=== PATIENT | male | born 1955 | race Caucasian/White ===

== ENCOUNTER → 2016-06-28 | Day surgery (SDC) | payer BC ==
[2016-06-15 08:08] VITALS: BMI 39.0
--- NOTE | 2016-06-15 08:46 | PAT Medication Instructions ---
Service Date June 15, 2016. Current Home Medication List Alprazolam (Xanax), 1 MG PO TID PRN for Anxiety Atorvastatin (Lipitor), 40 MG PO HS Bupropion (Wellbutrin Sr), 150 MG PO BID Fluoxetine (Prozac), 40 MG PO QAM Garcinia Cambogia-Chromium (Garcinia Cambogia), 1 TAB PO TIDM Lisinopril/Hctz (Prinzide 20-25MG), 0.5 TAB PO QAM Metformin Hcl (Glucophage *), 500 MG PO BID Medication Instructions For Your Scheduled Surgery - Hold the following medications 2 weeks prior to surgery: Garcinia Cambogia-Chromium (Garcinia Cambogia), 1 TAB PO TIDM - Hold the following medications 48 hours prior to surgery: Metformin Hcl (Glucophage *), 500 MG PO BID - Hold the following medications the morning of surgery: Lisinopril/Hctz (Prinzide 20-25MG), 0.5 TAB PO QAM - Take the following medications the morning of surgery with a sip of water: Fluoxetine (Prozac), 40 MG PO QAM Bupropion (Wellbutrin Sr), 150 MG PO BID Alprazolam (Xanax), 1 MG PO TID PRN for Anxiety - Take the following medications as scheduled the night before surgery: Bupropion (Wellbutrin Sr), 150 MG PO BID Atorvastatin (Lipitor), 40 MG PO HS Alprazolam (Xanax), 1 MG PO TID PRN for Anxiety If you have any questions please call us at [phone] or [phone] ( Suzan) or [phone]
[~2016-06-28] VITALS: Ht 182.9 cm; Wt 131.7 kg
[2016-06-28] VITALS (8 sets, daily range): BP systolic 104–142; BP diastolic 51–79; PULSE 63–95; TEMP 36.8–37; O2SAT 88–96; Ht 182.9 cm; Wt 131.7 kg
[~2016-06-28] MED LIST: ALPR-411 PO; ATOR-24 PO; ATROPINE SULFATE 0.1 MG/ML 5ML SYR IV PRN; BUPIVACAINE 0.5 % 5 MG/1 ML MPF 30ML VIAL ONE; BUPR-79 PO; CEFAZOLIN 3000 MG/65 ML D5W IV SCH; CISATRACURIUM BESYLATE IV SOLN 2 MG/ML 10 ML VIAL ONE; DEXAMETHASONE SOD INJ 4 MG/ML VIAL ONE; EpHEDrine SULFATE INJ 50 MG/ML AMP IV PRN; FENTANYL CITRATE INJ 50 MCG/1 ML 2 ML VIAL ONE; FLUO40CA8 PO; GARC1TAB PO; GLC500 PO; GLYCOPYRROLATE INJ 0.2 MG/ML VIAL ONE; LABETALOL HCL IV 5 MG/ML 20ML IV PRN; LACTATED RINGER'S 1000ML 1,000 ML IV SCH; LIDOCAINE HCL 1% 20 ML VIAL ONE; LIDOCAINE HCL 2% 2 ML VIAL (20MG/ML) ONE; LISI20TA55 PO; MIDAZOLAM HCL 1 MG/ML 2ML VIAL ONE; MoRPHine SULFATE 4 MG/ML 1 ML CARP\\VIAL IV PRN; NALOXONE HCL 0.4 MG/1 ML VIAL/CARP IV PRN; NEOSTIGMINE METHYLSULFATE 5 MG/5 ML SYR ONE; ONDANSETRON INJ 2 MG/ML 2 ML VIAL IV PRN; ONDANSETRON INJ 2 MG/ML 2 ML VIAL ONE; OXYCODONE/ACETAMINOPHEN 5-325 TAB PO PRN; PROMETHAZINE HCL INJ 12.5 MG in SODIUM CHLORIDE 0.9% 50ML 50 ML IV PRN; PROPOFOL IV EMULSION 10 MG/ML 20 ML VIAL IV ONE; SODIUM CHLORIDE 0.9% 1000ML 1,000 ML IV SCH; SUCCINYLCHOLINE CHLORIDE 20 MG/ML 10 ML VIAL IV ONE
--- NOTE | 2016-06-28 06:55 | History & Physical Bridge Note ---
H&P Re-Evaluation Bridge Note: I have examined the patient, reviewed the History & Physical and in the interval since the performance of the History & Physical I have noted the following changes of clinical significance: No changes noted
--- NOTE | 2016-06-28 08:24 | [facility] Post Operative Brief Note ---
Immediate Operative Summary Operative Date June 28, 2016. Pre-Operative Diagnosis epigastric hernia Post-Operative Diagnosis epigastric hernia Procedure(s) Performed Epigastric Hernia Repair Surgeon Dr. Andrew Maier Tile Setter Apprentice Surgeon(s) Kendy Le PA-C Estimated Blood Loss 5ml Findings See dictation Specimens A. Hernia Sac Drains None Anesthesia General Complication(s) None Disposition Recovery Room / PACU
--- NOTE | 2016-06-28 08:28 | Discharge Instructions ---
Discharge Instructions Date of Service June 28, 2016. Admission Reason for Admission: Epigastric Hernia Discharge Discharge Diagnosis / Problem: Same Discharge Goals Goal(s): Decrease discomfort Activity Recommendations Activity Limitations: per Instructions/Follow-up section Lifting Limitations: no more than 10 pounds (for 6 weeks) Shower/Bathe: tomorrow (Shower only) Driving or Machine Use: None for at least 2 weeks . Instructions / Follow-Up Instructions / Follow-Up ACTIVITY RECOMMENDATIONS: * Walk as much as possible. * No heavy lifting (>10 lbs.) for 6 weeks. SPECIAL CARE INSTRUCTIONS: * Ice to hernia repair site on and off until bedtime tonight. * May shower in 24 hours. Let water run over area and pat dry. * Leave steri strips on for one week. * Call the surgeon's office with any questions or concerns - (ex. temperature higher than 101 degrees F, excessive bleeding or pain). MEDICATIONS: Resume previous medications unless instructed otherwise by your surgeon. * Ibuprofen 600 mg every 6 hours with food * Percocet 1 every 4 hours, as needed for pain FOLLOW UP VISIT: If not already scheduled, please call the office to schedule a two week follow- up appointment. Office number Current Hospital Diet Patient's current hospital diet: Discharge Diet Recommended Diet: Regular Diet Procedures Procedures Performed: Epigastric Hernia Repair Pending Studies Studies pending at discharge: no Medical Emergencies . Who to Call and When: Medical Emergencies: If at any time you feel your situation is an emergency, please call 911 immediately. . Non-Emergent Contact Non-Emergency issues call your: Primary Care Provider, Surgeon Call Non-Emergent contact if: your pain is worsening, wound has increased redness, wound has increased pain . "Provider Documentation" section prepared by Andrew Maier. . VTE Core Measure Inpt VTE Proph given/why not?: Treatment not indicated
--- NOTE | 2016-06-28 08:48 | OPERATIVE REPORT ---
DATE OF OPERATION: 06/28/2016 PREOPERATIVE DIAGNOSIS: Epigastric hernia. POSTOPERATIVE DIAGNOSIS: Same. PROCEDURE: Repair of epigastric hernia. SURGEON: Dr. Maier. FORK LIFT TRUCK OPERATOR: Kendy Le PA-C. FINDINGS: The patient had a 5 cm fascial defect. The hernia sac was approximately 10 cm across at its greatest dimension. There was omentum and transverse colon within the hernia sac. There was no evidence of ischemia. There were no other hernia defects identified. TECHNIQUE: The patient was given a general anesthetic and the area was prepped and draped in the usual sterile fashion. A transverse incision was made, carried down through the subcutaneous tissue. The hernia sac was easily identified and away from the surrounding connective tissue using cautery, blunt and sharp dissection where appropriate. This dissection was carried around the entire circumference of the hernia sac until I could dissect it down to the fascial defect. The fascial defect was isolated away from the peritoneum. The hernia sac was opened and the omentum was dissected off the inner portion of the hernia sac. In order to reduce the hernia contents, I had to extend the size of the defect for about 5-7 mm laterally and then I was able to reduce the omentum and the colon back into the intraabdominal space. The hernia sac was then removed. The peritoneum was then able to be dissected away from the undersurface of the fascia, first superiorly to the left, then inferiorly on the left. The dissection on the right was a little more tricky in that the peritoneum was thinner on that side but I was able to establish a plane. The openings in the peritoneum were then closed with a running 2-0 Vicryl. The preperitoneal retrofascial space was established for at least 3-4 cm around the entire circumference of the fascial defect. A 12.5 cm round mesh was then placed preperitoneally and below the fascia. It was secured to the undersurface of the fascia with 0 PDS vertical mattress sutures. The fascial opening was then closed with a running #1 PDS. The subcutaneous tissue was closed with a running 3-0 Vicryl and the skin was closed with 4-0 Monocryl in a running subcuticular fashion. The skin was anesthetized with 0.5% Marcaine. The skin was cleansed, dried, benzoin placed, Steri-Strips applied. Estimated blood loss was 5 mL. Sponge, needle and instrument counts were correct prior to closure. The patient tolerated the surgical procedure without complication and was transferred to recovery. I attest to the content of the Intraoperative Record and any orders documented therein. Any exceptio ns are noted below.
[2016-06-28] MEDS: HYDROmorphone INJ 1 MG/ML SYR IV PRN ×2 (08:50→08:55)
--- NOTE | 2016-06-28 09:07 | Anesthesiology Progress Note ---
Anesthesia Post Op Note Date & Time June 28, 2016 at 09:06 Vital Signs Pain Intensity: 5.0 Vital Signs Past 12 Hours Date Time Temp Pulse Resp B/P Pulse Ox O2 Delivery O2 Flow Rate FiO2 06/28/16 08:55 91 16 118/69 99 Nasal Cannula 4 06/28/16 08:45 92 16 125/73 99 Mask 5 06/28/16 08:35 96 16 178/97 99 Mask 10 06/28/16 08:28 36.2 97 16 178/84 98 Mask 10 06/28/16 05:32 37 63 18 142/79 96 Room Air Notes Mental Status: alert / awake / arousable, participated in evaluation Pt Amnestic to Procedure: Yes Nausea / Vomiting: adequately controlled Pain: adequately controlled Airway Patency, RR, SpO2: stable & adequate BP & HR: stable & adequate Hydration State: stable & adequate Anesthetic Complications: no major complications apparent
== END | disposition home or self-care (01) ==
LOC: C.ACU 05:12
PROVIDERS: ATTEND Surgery
DX: K43.9 Ventral hernia without obstruction or gangrene (principal); E78.5 Hyperlipidemia, unspecified; E66.01 Morbid (severe) obesity due to excess calories; E11.9 Type 2 diabetes mellitus without complications; Z90.49 Acquired absence of other specified parts of digestive tract

== ENCOUNTER 2023-02-14 23:34 | Observation (INO) ==
--- OUTSIDE RECORDS SUMMARY | 2023-02-14 23:40 | External Medical Summary | Continuity of Care Document ---
Author Name Unknown Organization [address] Address [address] [place], [place] [id number] Care Team Providers Care Rivet Heater Name Role Phone Beatriz Osborne Primary Care P maria de jesus [phone] Encounter [facility]UDREYN[facility] [id number] Date(s): 01/11/23 - 01/11/[address], [facility] [address] [place] [address] [phone] Encounter Diagnosis Body mass index [BMI] 37.0-37.9, adult(Discharge Diagnosis) - 01/11/23 Diabetes(Discharge Diagnosis) - 01/11/23 Discharge Disposition: Home or Self Care Attending Physician: Sarah Booker DO, Mariana Annette Referring Physician: Sarah Booker DO, Mariana Annette Allergies, Adverse Reactions, Alerts No Known Allergies Assessment and Plan Extracted from: Title:Office Visit Note Author:Sarah Booker DO, Mariana Annette Date:01/11/23 1.Diabetes STATUS:Chronic stable. DATA:Labs reviewed. GOAL:Maintain stability. PLAN:Cont current meds, discussed diet changes and discretion during the holidays. f/u in 3 mo with labs. . Immunizations Given and Recorded Vaccine Date Status Refusal Reason influenza virus vaccine, inactivated 01/11/23 Give n influenza virus vaccine, inactivated 1 01/29/22 Gi gerardo influenza virus vaccine, inactivated 01/01/21 Give n pneumococcal 20-valent conjugate vaccine 2 01/29/22 Given SARS-CoV-2 (COVID-19) mRNA BNT-162b2 vax 3 11/26/20 Recorded SARS-CoV-2 (COVID-19) mRNA BNT-162b2 vax 4 05/05/20 Recorded SARS-CoV-2 (COVID-19) mRNA BNT-162b2 vax 5 04/14/20 Recorded pneumococcal 13-valent vaccine 6 11/22/19 Recorded tetanus/diphtheria/pertuss, acel (Tdap) 7 10/24/18 Recorded tetanus/diphtheria/pertuss, acel (Tdap) 8 11/16/07 Recorded pneumococcal 23-valent vaccine 9 08/20/05 Recorded 1Result Comment: Stacey Kincaid Ma 2Result Comment: Stacey Kincaid Ma 3Result Comment: 2020-12-18: Historical information-source unspecified 4Result Comment: 2020-10-03: Historical information-source unspecified 5Result Comment: 2020-10-03: Historical information-source unspecified 6Result Comment: 2020-10-03: Historical information-source unspecified 7Result Comment: 2020-10-03: Historical information-source unspecified 8Result Comment: 2020-10-03: Historical information-source unspecified 9Result Comment: 2020-10-03: Historical information-source unspecified Medications albuterol CFC free 90 mcg/inh MDI Start: 11/20/21 10:57:00 EDT, 2 puff, inhaled, qid, Disp# 18 g, Pharmacy: [facility]/pharmacy #[id number] Start Date: 11/20/21 Status: Ordered atorvastatin 40 mg oral tablet Start: 04/13/22 16:27:00 EST, 1 tab, PO, qhs, Disp# 90 tab, Refills: 3, Pharmacy: [facility] Start Date: 04/13/22 Status: Ordered finasteride 5 mg oral tablet Start: 08/09/22 11:24:00 EDT, 1 tab, PO, Daily, Disp# 90 tab, Refills: 2, please send medications to patients home address, Pharmacy: [facility] Start Date: 08/09/22 Status: Ordered Flomax 0.4 mg oral capsule Start: 08/09/22 11:24:00 EDT, 1 cap, PO, Daily, Disp# 90 cap, Refills: 2, Pharmacy: [facility] Start Date: 08/09/22 Status: Ordered hydroCHLOROthiazide-lisinopril 12.5 mg-10 mg oral tablet Start: 08/09/22 11:24:00 EDT, 1 tab, PO, Daily, Disp# 90 tab, Refills: 2, Pharmacy: [facility] Start Date: 08/09/22 Status: Ordered Jardiance 25 mg oral tablet Start: 10/13/22 13:20:00 EDT, 1 tab, PO, qAM, Disp# 90 tab, Refills: 1, Pharmacy: [facility] Start Date: 10/13/22 Stop Date: 04/11/23 Status: Ordered metFORMIN 1000 mg oral tablet Start: 10/13/22 13:20:00 EDT, 1 tab, PO, bid, Disp# 180 tab, Refills: 1, Pharmacy: [facility] Start Date: 10/13/22 Stop Date: 04/11/23 Status: Ordered omeprazole 40 mg oral delayed release capsule Start: 05/19/21 10:00:00 EDT, 1 cap, PO, Daily, Disp# 30 cap, Take at bedtime., Pharmacy: [facility]/pharmacy #[id number] Start Date: 05/19/21 Status: Ordered One Touch Delica Plus (30G) Lancets Start: 01/08/22 11:50:00 EST, See Instructions, Disp# 90 each, Refills: 3, Glucose monitoring once daily ICD: E11.9, Pharmacy: [facility] Start Date: 01/08/22 Status: Ordered One Touch Verio Glucose Monitor Start: 07/10/20 17:15:00 EDT, See Instructions, Disp# 1 each, Refills: 0, Glucometer for home testing, Pharmacy: [facility] Start Date: 07/10/20 Status: Ordered One Touch Verio Test Strips Start: 04/13/22 16:27:00 EST, See Instructions, Disp# 100 strip, Refills: 3, Testing glucose at home once daily E11.9, Pharmacy: [facility] Start Date: 04/13/22 Status: Ordered PROzac 40 mg oral capsule Start: 04/13/22 16:27:00 EST, 1 cap, PO, Daily, Disp# 90 cap, Refills: 3, Pharmacy: [facility] Start Date: 04/13/22 Status: Ordered Trulicity Pen 4.5 mg/0.5 mL subcutaneous solution Start: 01/11/23 17:02:00 EST, 4.5 mg =, subQ, q7days, Disp# 2 mL, Refills: 3, Pharmacy: [facility] Start Date: 01/11/23 Status: Ordered Wellbutrin XL 150 mg/24 hours oral tablet, extended release Start: 04/13/22 16:27:00 EST, 1 tab, PO, Daily, Disp# 90 tab, Refills: 3, Note to Pharmacy: The SR 150 mg bid dose has been D/C, Pharmacy: [facility] Start Date: 04/13/22 Stop Date: 04/08/23 Status: Ordered Xanax 1 mg oral tablet Start: 07/04/20 8:39:00 EDT, 1 tab, PO, tid, PRN: as needed for anxiety Start Date: 07/04/20 Status: Ordered Mental Status 01/11/23 Barriers to Learning one year None evide nt Mandatory Health Literacy Documentation Yes Health Literacy Communication Barriers N ever Primary Language Indonesian Problem List Condition Confirmation Course Effective Dates Status H ealth Status Informant BMI 37.0-37.9, adult Confirmed Active Diabetes Confirmed Active Diabetic nutritional counseling completed Confirmed Active Anxiety Confirmed Active Type 2 diabetes mellitus with hyperglycemia 1 Confirmed Active Morbid obesity 2 Confirmed Active Major depression, recurrent, chronic Confirmed Active Skin lesion Confirmed Active 1per geographic information scientist (rn) audit completed 01/27/21 2BMI >35 with diabetes Diagnosis Diagnosis Type Effective Dates Health Status Cl inical Service Informant Diabetes Discharge Diagnosis 01/11/23 Body mass index [BMI] 37.0-37.9, adult Discharge Diagnosis 01/11/23 Non-Specified Procedures Procedure Date Related Diagnosis Body Site Status Colonoscopy 1 06/17/22 Completed Shave biopsy and cauterization of skin 10/16/20 Completed Appendectomy Completed Hernia Completed Neck Completed Shoulder 2 Completed 1Findings & Specimens: The perianal and digital rectal examinations were normal. Multiple small and large-mouthed diverticula were found in the sigmoid colon and descending colon. A 2 mm polyp was found in the ascending colon. The polyp was sessile. The polyp was removed with a cold snare. Resection was complete, polyp not retrieved due to prep quality. Multiple angiodysplastic lesions without bleeding were found in the ascending colon and in the cecum. Internal hemorrhoids seen on retroflexion. Exam otherwise normal, but limited by prep quality. 2Right Left Vital Signs Most recent to oldest [Reference Range]: 1 Height 180.2 cm (01/11/23 1:25 PM) Patient Weight 123.3 kg (01/11/23 1:25 PM) Body Mass Index 37.97 kg/m2 (01/11/23 1:25 PM) Temperature [36.5-37.9 DegC] 35.5 DegC *LOW* (01/11/23 1:25 PM) Heart Rate 79 bpm (01/11/23 1:25 PM) Blood Pressure 140/72mmHg (01/11/23 1:25 PM) Cuff Pulse Pressure 68 mmHg (01/11/23 1:25 PM) Social History Social History Type Response Tobacco Former smoker, Smoke less tobacco use: Former smoker cigarettes, quit 20 years ago at age 44. Smoking Status Never smoked cigaret keith Sex Male [facility] Outpt Note * Sarah Booker DO, Mariana Annette: PERFORM Event Display: [facility] Outpt Note Authored Date: [id number] Chief Complaint 3 month f/u. Talk about trulicity. History of Present Illness Patient presents to f/u on DM type 2. Diabetes Type II,uncontrolled with hyperglycemia - current regimen includes: trulicity 4.5 mg weekly, jardiance 25mg daily, metformin 1000mg BID - he notesafter Thanksgiving, he was havingsignificant abdominal pain, also constipation (taking metamucil and stool softener). Feeling back to normal since the weekend. Wondering if this is related to trulicity. - mild improvement of A1c 7.8 to 7.6 -on statin therapy and ACEi/ARB per medication list - adherent to present medication regimen - FBG: <150 - Not as active as usual. Has a treadmill at home but needs to get it set up. - He also follows with our hematology nurse educator - sees ophthalmology every Fall - no retinopathy Physical Exam Vitals & Measurements T:35.5C HR:79(Monitored) BP:140/72 SpO2:95% HT:180.2cm WT:123.300kg(Dosing) WT:123.3kg BMI:37.97 PHQ2 Data(Data Documented on:01/11/2023 13:23) Emotional health assessment NEGATIVE General: _Alert and oriented, No acute distress Cardiovascular: _Normal rate, Regular rhythm, No murmur, No gallop. Respiratory: _Lungs are clear to auscultation, Respirations are non-labored, Breath sounds are equal Psych: Mood-affect congruence. Reports no SI/HI. Speech is of normal pace and content Assessment/Plan 1.Diabetes STATUS:Chronic stable. DATA:Labs reviewed. GOAL:Maintain stability. PLAN:Cont current meds, discussed diet changes and discretion during the holidays. f/u in 3 mo with labs. . Attestation Time spent: Pre-visit plannin [id number] visit: 25 Post-visit (orders/documentation/coordination of care): Total visit time: 35 Problem List/Past Medical History Ongoing Anxiety BMI 37.0-37.9, adult Diabetes Diabetic nutritional counseling completed Major depression, recurrent, chronic Morbid obesity Skin lesion Type 2 diabetes mellitus with hyperglycemia Procedure/Surgical History Colonoscopy (06/17/2022)Shave biopsy and cauterization of skin (10/16/2020)NeckAppendectomyShoulderHernia Medications albuterol(albuterol CFC free 90 mcg/inh MDI), 2 puff, inhaled, qid ALPRAZolam(Xanax 1 mg oral tablet), 1 mg= 1 tab, PO, tid, PRN atorvastatin(atorvastatin 40 mg oral tablet), 40 mg= 1 tab, PO, qhs, 3 refills buPROPion(Wellbutrin XL 150 mg/24 hours oral tablet, extended release), 150 mg= 1 tab, PO, Daily, 3refills diabetes supplies(One Touch Verio Test Strips), See Instructions, 3 refills diabetes supplies(One Touch Delica Plus (30G) Lancets), See Instructions, 3 refills diabetes supplies(One Touch Verio Glucose Monitor), See Instructions dulaglutide(Trulicity Pen 4.5 mg/0.5 mL subcutaneous solution), 4.5 mg, subQ, q7days, 3 refills empagliflozin(Jardiance 25 mg oral tablet), 25 mg= 1 tab, PO, qAM, 1 refills finasteride(finasteride 5 mg oral tablet), 5 mg= 1 tab, PO, Daily, 2 refills FLUoxetine(PROzac 40 mg oral capsule), 40 mg= 1 cap, PO, Daily, 3 refills hydroCHLOROthiazide-lisinopril(hydroCHLOROthiazide-lisinopril 12.5 mg-10 mg oral tablet), 1 tab, PO, Daily, 2 refills influenza virus vaccine, inactivated(influenza virus vaccine, inactivated HIGH- DOSE preservative-free QUADravalent IM susp), 0.7 mL, IM, ONCE metFORMIN(metFORMIN 1000 mg oral tablet), 1000 mg= 1 tab, PO, bid, 1 refills omeprazole(omeprazole 40 mg oral delayed release capsule), 40 mg= 1 cap, PO, Daily tamSULOsin(Flomax 0.4 mg oral capsule), 0.4 mg= 1 cap, PO, Daily, 2 refills Allergies NKA Social History Smoking Status Never smoked cigarettes Alcohol - Denies Alcohol Use Use:Past Exercise - Regular exercise Substance Abuse - Denies Substance Abuse Tobacco - Low Risk Use:Former smoker Smokeless tobacco use:Former smoker cigarettes, quit 20 years ago at age 44 Family History Breast cancer: Mother. Cancer: Mother. Malignant tumor of lung: Father. Respiratory disease: Mother. Stroke: Mother. Type II diabetes mellitus: Mother, Sister and MGF. Health Status Family Member(s) Immunizations Vaccine Date Status pneumococcal 20-valent conjugate vaccine 01/29/2022 Given Comments : Stacey Kincaid Ma influenza virus vaccine, inactivated 01/29/2022 Given Comments : Stacey Kincaid Ma influenza virus vaccine, inactivated 01/01/2021 Given SARS-CoV-2 (COVID-19) mRNA BNT-162b2 vax 11/26/2020 Recorded Comments : 2020-12-18: Historical information-source unspecified SARS-CoV-2 (COVID-19) mRNA BNT-162b2 vax 05/05/2020 Recorded Comments : 2020-10-03: Historical information-source unspecified SARS-CoV-2 (COVID-19) mRNA BNT-162b2 vax 04/14/2020 Recorded Comments : 2020-10-03: Historical information-source unspecified pneumococcal 13-valent vaccine 11/22/2019 Recorded Comments : 2020-10-03: Historical information-source unspecified tetanus/diphtheria/pertuss, acel (Tdap) 10/24/2018 Recorded Comments : 2020-10-03: Historical information-source unspecified tetanus/diphtheria/pertuss, acel (Tdap) 11/16/2007 Recorded Comments : 2020-10-03: Historical information-source unspecified pneumococcal 23-valent vaccine 08/20/2005 Recorded Comments : 2020-10-03: Historical information-source unspecified Recommendations Health Maintenance Pending(in the next year) OverDue Adult Influenza Vaccine due08/14/22and every 1year Due Adult COVID-19 Vaccination due01/11/23Unknown Frequency Hepatitis C Screening due01/11/23One-time only Shingles Vaccine due01/11/23One-time only Due In Future Medicare Annual Wellness Visit not due until01/30/23and every 1year Diabetes Management A1c not due until01/05/24and every 366day Body Mass Index not due until01/11/24and every 1year Satisfied(in the past 1 year) Satisfied Adult Influenza Vaccine on01/29/22.Satisfied by ALEXANDER Munoz Angela Body Mass Index on01/11/23.Satisfied by ALEXANDER Munoz Angela Diabetes Management A1c on01/04/23.Satisfied by Contributor_system, [email or web address] Diabetes Nephropathy Management on04/05/22.Satisfied by Contributor_system, [email or web address] Diabetic Eye Exam on11/03/22.Satisfied by CHRISTIANO Gaitan Lynnae Lipid Screening on04/05/22.Satisfied by Contributor_system, [id number] Medicare Annual Wellness Visit on01/30/22.Satisfied by TRAVON Conde Susan M Electronic Signature on File Electronically Reviewed/Signed by: Beatriz Booker DO Author Signature Dt/Tm:01/11/2023 01:52 PM Department of Family Medicine [facility] Patient Care team information Care Team Personnel Name: Sarah Booker DO, Mariana Annette Position: Physician - Family Med Member Role: Primary Care Provider Address: Address: [address] [place] [address]
--- OUTSIDE RECORDS SUMMARY | 2023-02-14 23:40 | External Medical Summary | Summary of Care ---
Author Name Unknown Organization [facility] Address [address] [place] [address] Phone [phone] Care Team Providers Care Non Licensed Operator Name Role Phone AmayaSydnee cunningham TRAVON Primary Care Provider Reason for Visit * Reason Onset Date Comments Appointment 12/28/2022 Encounter Details Date Type Department Care Team ([facility] Contact Info) Description 12/28/2022 Telephone Gastroenterology, [facility] [address] [place] [address] Polina Elliott MD [address] [place] [address] Appointment Allergies No known active allergiesdocumented as of this encounter (statuses as of 12/29/2022) Medications Medication Sig Dispensed Refills Start Date End Date Status XANAX 1 MG PO TABSIndications:Anxi ety state One pill by mouth 3 times a day as needed for anxiety 30 Tab 0 11/26/2010 Active Additional Information Patient not taking.Reported on 06/14/2022 buPROPion HCl ER (SR) 150 MG Oral Tablet Extended Release 12 Hour (WELLBUTRIN SR)Indications:Adjus tment disorder with depressed mood Take 1 Tab by mouth 2 times a day. 180 Tab 1 12/20/2019 Active Trulicity 0.75 MG/0.5ML Subcutaneous Solution Pen-injector (Dulaglutide) Inject 0.75 mg under the skin once a week. 12 mL 5 02/19/2020 Active Additional Information Patient taking differently:0.75 mg Subcutaneous QWEEK,Sundays, Reported on 06/14/2022 Atorvastatin Calcium 40 MG Oral Tablet (Lipitor)Indications :Dyslipidemia, goal LDL below 100 Take 1 Tab by mouth daily. 90 Tab 1 03/19/2020 Active Additional Information Patient taking differently:40 mg OralHS, Reported on 06/14/2022 metFORMIN HCl 1000 MG Oral Tablet (Glucophage)Indicati ons:Type 2 diabetes mellitus with hemoglobin A1c goal of less than 7.0% (HCC) Take 1 Tab by mouth 2 times a day with morning and evening meals. 180 Tab 1 04/18/2020 Active Additional Information Patient taking differently:1,000 mg OralBREAKFAST, Reported on 06/14/2022 FLUoxetine HCl 20 MG Oral Capsule (PROzac)Indications: Anxiety state Take 2 Caps by mouth daily. 180 Cap 1 04/18/2020 Active Additional Information Patient taking differently: 20 mgOralBID (.AM/PM), Reported on 06/14/2022 Finasteride 5 MG Oral Tablet (Proscar)Indications :BPH with obstruction/lower urinary tract symptoms Take 1 Tab by mouth daily. 90 Tab 3 05/19/2020 Active Additional Information Patient taking differently:5 mg OralHS, Reported on 06/14/2022 Tamsulosin HCl 0.4 MG Oral Capsule (Flomax)Indications: BPH with obstruction/lower urinary tract symptoms Take 1 Cap by mouth daily. 90 Cap 3 05/19/2020 Active Lisinopril-hydroCHLO ROthiazide 10-12.5 MG Oral TabletIndications:HT N, goal below 130/80 Take 1 Tab by mouth daily. 90 Tab 3 06/20/2020 Active documented as of this encounter (statuses as of 12/29/2022) Active Problems Problem Noted Date Diagnosed Date Obesity, Class II, BMI 35-39.9, isolated (see ac tual BMI) 06/20/2020 JACIEL (obstructive sleep apnea) 06/20/2020 Prostate cancer screening 02/18/2020 Left hydrocele 02/18/2020 BPH with obstruction/lower urinary tract symptom s 02/18/2020 Impotence 02/18/2020 Nocturia 02/18/2020 Migraine variant 01/19/2019 Right hydrocele 03/30/2016 Essential hypertension with goal blood pressure less than 140/90 05/03/2011 Obesity, morbid (more than 1 00 lbs over ideal weight or BMI > 40) 07/29/2009 Overview: Per Obesity Protocol, #19 ICD-10 update of inactive term DYSLIPIDEMIA, GOAL LDL BELOW 100 01/23/2009 Overview: Per Lipid Taxonomy. Type 2 diabetes mellitus wit h hemoglobin A1c goal of less than 7.0% 12/12/2008 Overview: Per Diabetes Taxonomy. ICD-10 update of inactive term Anxiety state 02/09/2007 Dyslipidemia 12/10/2005 Overview: Per Lipid Taxonomy. ADVANCE DIRECTIVE INFORMATION 08/20/2005 Overview: Information given to pt LOC PRIM [id number] 08/20/2005 Enthesopathy of knee 08/20/2005 ADJ DISORDER W/DEPRES MOOD 08/20/2005 documented as of this encounter (statuses as of 12/29/2022) Resolved Problems Problem Noted Date Diagnosed Date Resolved Date Scalp laceration 01/14/2013 06/15/2013 Abnormal results of liver function studies 11/10/2009 02/11/2017 Overview: Fatty liver HTN, goal below 130/80 03/12/200905/02 Overview: Per HTN Taxonomy. Ventral hernia, unspecified, without mention of obstruction or gangrene 09/12/2008 02/11/2017 Type 2 diabetes mellitus wit h hemoglobin A1c goal of less than 7.0% 08/20/2005 12/12/2008 Overview: Per Diabetes Taxonomy. ICD-10 update of inactive term HTN, goal below 140/90 08/20/200503/12 Overview: Per HTN Taxonomy. documented as of this encounter (statuses as of 12/29/2022) Immunizations Name Administration Dates Next Due Pneumococcal Conjugate Vacc, 13 Valent (Prevnar) 11/22/2019 Pneumococcal Polysaccharide PPV23 (Pneumovax) 08/20/2005 SEASONAL INFLUENZA, PF, 6 M & Above, IM , (FLULAVAL or FLUZONE) 10/24/2018,02/15/2018,02/11/2017 Season Influenza, Quad, PF, Adjuvanted, 65+ Yrs, IM (FLUAD) 11/22/2019 Seasonal Influenza, Quadriva lent, No Preserve, IM 02/10/2016,01/17/2015 Seasonal Influenza, Split, I IV3, With Preserve, Inj 01/16/2010 TDAP (age 10 and older)(Boostrix) 10/24/2018 TDAP (age 11 and older)(Adacel) 11/16/2007 documented as of this encounter Social History Tobacco Use Types Packs/Day Years Used Date Smoking Tobacco: Former Cigarettes Q uit: 02/14/1993 Smokeless Tobacco: Never Alcohol Use Standard Drinks/Week Comments No 0 (1 standard drink = 0.6 oz pur e alcohol) PHQ-2 Answer Date Recorded PHQ-2 Score 2 11/16/2019 Hunger Vital Sign Answer Date Recorded Worried About Running Out of Food in the Last Ye ar Never true 08/24/2018 Ran Out of Food in the Last Year Never true 08/24/2018 Sex and Gender Information Value Date Recorded Sex Assigned at Male 05/30/2018 3:50 PM EDT Gender Identity Male 05/30/2018 3:50 PM EDT Sexual Orientation Straight 05/30/2018 3: 50 PM EDT Job Start Date Occupation Industry Not on file Not on file Not on file documented as of this encounter Miscellaneous Notes * Telephone Encounter - Polina Elliott MD - 12/29/2022 10:23 AM EST 2 day prep. He should hold trulicity 2 weeks before exam. Low fiber diet 1 week before exam. Thanks. * Telephone Encounter - Lindsey Moreno - 12/28/2022 1:13 PM EST Pt called back to schedule his colonoscopy. Pt stated that when he had his last colonoscopy the prep he did, did not work that Dr. Messer going to do something else for him? Are we thinking different prep or a 2 day prep? Please advise.. Thank you! * Telephone Encounter - Robel Burroughs OSA - 12/28/2022 11:40 AM EST LMOM for pt to call back to schedule * Telephone Encounter - Christine Barnett OSA - 12/28/2022 9:33 AM EST Pt had colonoscopy 06/17/22, to have repeat 6-12 months. Thanks documented in this encounter Plan of Treatment Upcoming Encounters Date Type Department Care Team (Latest Contact Info) Description 04/28/2023 8:30 AM EDT Hospital Encounter ENDO [facility], Endoscopy Room [facility] [address] [place] [phone] Polina Elliott MD [address] [place] [address] 04/28/2023 8:30 AM EDT - 04/28/2023 9:00 AM EDT Surgery ENDO [facility], Endoscopy Room [facility] [address] [place] [phone] Polina Elliott MD [address] [place] [address] COLONOSCOPY FLEXIBLE PROXIMAL DIAGNOSTIC Scheduled Procedures Name Priority Associated Diagnoses Date/Ti me COLONOSCOPY FLEXIBLE PROXIMAL DIAGNOSTIC Recall History of colon polyps 04/28/2023 8:30 AM EDT Health Maintenance Due Date Last Done Comments Zoster Vaccines (1 of 2) 2004 Hepatitis B (1 of 3 - Risk 3-dose series) 2014 Albumin/Creatinine Ratio 05/25/2020 020, 08/20/2018, 02/04/2018, Additional history exists Depression Screening 11/12/2020 11/13/2019 Diabetic Foot Exam 11/21/2020 11/22/2019, 0 08/24/2018, 08/12/2017, Additional history exists HbA1c 11/25/2020 05/26/2020, 03/2019, 05/26/2019, Additional history exists Diabetic Eye Exam 12/25/2020 12/26/2019, , 10/19/2017, Additional history exists B-12 05/26/2021 05/26/2020, 08/2018, 08/08/2017 GFR 05/26/2021 05/26/2020, 05/15, 08/20/2018, Additional history exists COVID-19 Vaccine (2022- season) 2022 11/26/2020, 05/05/2020, 04/14/2020 Influenza Vaccine (FLU shot) (#1) 2022 11/22/2019, 10/24/2018, 02/15/2018, Additional history exists Lipid Panel 05/26/2025 05/26/2020, 05/15, 08/20/2018, Additional history exists COLONOSCOPY-EVERY 3 YRS AGES 18-100 06/17/2025 06/17/2022, 06/17/2022, 01/05/2019, Additional history exists DTaP,Tdap,and Td Vaccines (3 - Td or Tdap) 10/24/2028 10/24/2018, 11/16/2007 AAA Screening Completed 11/26/2019 Pneumococcal Vaccine: 65+ Years Completed 01/29/2022, 11/22/2019, 08/20/2005 GARDASIL-HPV IMMUNIZATION SERIES Aged Out No longer eligible based on patient's age to complete this topic MENINGOCOCCAL (MENACTRA/MENVEO) Aged Out No longer eligible based on patient's age to complete this topic documented as of this encounter Medical Devices Not on filedocumented as of this encounter Care Teams Non Licensed Operator Relationship Specialty Start Date End Date Sydnee Conde CRNP [address] [facility] [address] [place] [address] [place] [address], [place] [address] PCP - General Nurse Practitioner 02/01/22 documented as of this encounter
--- OUTSIDE RECORDS SUMMARY | 2023-02-14 23:40 | External Medical Summary | Summary of Care ---
Author Name Unknown Organization [facility] Address [address] [place] [address] Phone [phone] Care Team Providers Care Chairman Of The Board Name Role Phone AmayaSydnee cunningham TRAVON Primary Care Provider Reason for Visit * Reason Onset Date Comments Appointment 12/28/2022 Encounter Details Date Type Department Care Team ([facility] Contact Info) Description 12/28/2022 Telephone Gastroenterology, [facility] [address] [place] [address] Polina Elliott MD [address] [place] [address] Appointment Allergies No known active allergiesdocumented as [...] Overview: Information given to pt LOC PRIM [id number] 08/20/2005 Enthesopathy of knee 08/20/2005 ADJ DISORDER [...] 04/28/2023 8:30 AM EDT Hospital Encounter [facility]O [facility], [facility]oscopy Room [facility] [address] [place] [address] Polina Elliott MD [address] [place] [address] 04/28/2023 8:30 AM EDT - 04/28/2023 9:00 AM EDT Surgery [facility], Endoscopy Room [facility] [address] [place] [address] Polina Elliott MD [address] [place] [address] COLONOSCOPY FLEXIBLE PROXIMAL DIAGNOSTIC Scheduled Procedures Name [...] filedocumented as of this encounter Care Teams Chairman Of The Board Relationship Specialty Start Date End Date Sydnee Conde CRNP [address] [facility] [address] [place] [address] [place] [address], [place] [address] PCP - General Nurse Practitioner 02/01/22 documented as of this encounter
--- OUTSIDE RECORDS SUMMARY | 2023-02-14 23:40 | External Medical Summary | Summary of Care ---
Author Name Unknown Organization [facility] Address [address] [place] [facility] [place] [facility] [place] [address] Phone [phone] Care Team Providers Care Safety Equipment Testing Specialist Name Role Phone AmayaSydnee cunningham TRAVON Primary Care Provider Reason for Visit * Reason Onset Date Comments Appointment 12/28/2022 Encounter Details Date Type Department Care Team ([facility] Contact Info) Description 12/28/2022 Telephone Gastroenterology, [facility] [address] [place] [address] Polina Elliott MD [address] [place] [address] Appointment Allergies No known active allergiesdocumented as of this encounter (statuses as of 01/24/2023) Medications Medication Sig Dispensed Refills Start Date [...] as of this encounter (statuses as of 01/24/2023) Active Problems Problem Noted Date Diagnosed Date [...] Overview: Information given to pt LOC PRIM [id number] 08/20/2005 Enthesopathy of knee 08/20/2005 ADJ DISORDER W/DEPRES MOOD 08/20/2005 documented as of this encounter (statuses as of 01/24/2023) Resolved Problems Problem Noted Date Diagnosed Date [...] as of this encounter (statuses as of 01/24/2023) Immunizations Name Administration Dates Next Due Pneumococcal [...] encounter Miscellaneous Notes * Telephone Encounter - Lindsey Moreno OSA - 01/24/2023 2:51 PM EST Pt is aware of his instructions. prep instructions sent to his MyG. * Telephone Encounter - Polina Elliott MD - 12/29/2022 10:23 AM EST 2 day prep. He should hold trulicity 2 weeks before exam. Low fiber diet 1 week before exam. Thanks. * Telephone Encounter - Lindsey Moreno OSA - 12/28/2022 1:13 PM EST Pt called [...] 04/28/2023 8:30 AM EDT Hospital Encounter [facility], Endoscopy Room [facility] [address] [place] [phone] Polina Elliott MD [address] [place] [address] 04/28/2023 8:30 AM EDT - 04/28/2023 9:00 AM EDT Surgery ENDO [facility], Endoscopy Room [facility] [address] [place] [phone] Polina Elliott MD [address] [place] [address] COLONOSCOPY FLEXIBLE PROXIMAL DIAGNOSTIC Scheduled Procedures Name [...] 05/15, 08/20/2018, Additional history exists COVID-19 Vaccine ( season) 2022 11/26/2020, 05/05/2020, 04/14/2020 Influenza Vaccine [...] filedocumented as of this encounter Care Teams Safety Equipment Testing Specialist Relationship Specialty Start Date End Date Sydnee Conde CRNP [address] [facility] [address], [place] [address] PCP - General Nurse Practitioner 02/01/22 documented as of this encounter
--- OUTSIDE RECORDS SUMMARY | 2023-02-14 23:40 | External Medical Summary | Summary of Care ---
Author Name Unknown Organization [facility] Address [address] [facility] [place] [address] Phone [phone] Care Team Providers Care Breast Buffer Name Role Phone AmayaSydnee cunningham TRAVON Primary Care Provider Reason for Visit * Reason Onset Date Comments Appointment 12/28/2022 Encounter Details Date Type Department Care Team ([facility] Contact Info) Description 12/28/2022 Telephone Gastroenterology, [facility] [address] [place] [address] Polina Elliott MD [address] [place] [address] Appointment Allergies No known active allergiesdocumented as [...] Overview: Information given to pt LOC PRIM [id number] 08/20/2005 Enthesopathy of knee 08/20/2005 ADJ DISORDER [...] 04/28/2023 8:30 AM EDT Hospital Encounter ENDO [facility], Endoscopy Room [facility] [address] [place] [address] Polina Elliott MD [address] [place] [address] 04/28/2023 8:30 AM EDT - 04/28/2023 9:00 AM EDT Surgery ENDO [facility], Endoscopy Room [facility] [address] [place] [address] Polina Elliott MD [address] [place] [address] COLONOSCOPY FLEXIBLE PROXIMAL DIAGNOSTIC Scheduled Procedures Name [...] filedocumented as of this encounter Care Teams Breast Buffer Relationship Specialty Start Date End Date Sydnee Conde CRNP [address] [facility] [address] [place] [address] [place] [address], [place] [address] PCP - General Nurse Practitioner 02/01/22 documented as of this encounter
--- OUTSIDE RECORDS SUMMARY | 2023-02-14 23:41 | External Medical Summary | Summary of Care ---
Author Name Unknown Organization [facility] Address [address] [place] [place] [facility] [place] [address] Phone [phone] Care Team Providers Care Die Polisher Name Role Phone AmayaSydnee cunningham TRAVON Primary Care Provider Reason for Visit * Reason Onset Date Comments Appointment 12/28/2022 Encounter Details Date Type Department Care Team ([facility] Contact Info) Description 12/28/2022 Telephone Gastroenterology, [facility] [address] [place] [address] Polina Elliott MD [address] [place] [address] Appointment Allergies No known active allergiesdocumented as of this encounter (statuses as of 12/28/2022) Medications Medication Sig Dispensed Refills Start Date [...] as of this encounter (statuses as of 12/28/2022) Active Problems Problem Noted Date Diagnosed Date [...] Overview: Information given to pt LOC PRIM [id number] 08/20/2005 Enthesopathy of knee 08/20/2005 ADJ DISORDER W/DEPRES MOOD 08/20/2005 documented as of this encounter (statuses as of 12/28/2022) Resolved Problems Problem Noted Date Diagnosed Date [...] as of this encounter (statuses as of 12/28/2022) Immunizations Name Administration Dates Next Due Pneumococcal [...] Notes * Telephone Encounter - Lindsey Moreno - [...] EDT Hospital Encounter [facility], Endoscopy Room [facility] [address] [place] [address] Polina Elliott MD [address] [place] [address] 04/28/2023 8:30 AM EDT - 04/28/2023 9:00 AM EDT Surgery [facility], Endoscopy Room [facility] [address] [place] [phone] Polina Elliott MD [address] [place] [address] COLONOSCOPY FLEXIBLE PROXIMAL DIAGNOSTIC Scheduled Procedures Name [...] 08/12/2017, Additional history exists HbA1c 11/25/2020 05/26/2020, 10/0 03/2019, 05/26/2019, Additional history exists Diabetic Eye Exam 12/25/2020 12/26/2019, , 10/19/2017, Additional history exists B-12 05/26/2021 05/26/2020, 08/2018, 08/08/2017 GFR 05/26/2021 05/26/2020, 05/15, 08/20/2018, Additional history exists COVID-19 Vaccine ( - 2022- season) 2022 11/26/2020, 05/05/2020, 04/14/2020 Influenza Vaccine [...] filedocumented as of this encounter Care Teams Die Polisher Relationship Specialty Start Date End Date Sydnee Conde CRNP [address] [facility] [address] [place] [address] [place] [address], [place] [address] PCP - General Nurse Practitioner 02/01/22 documented as of this encounter
--- OUTSIDE RECORDS SUMMARY | 2023-02-14 23:41 | External Medical Summary | Continuity of Care Document ---
Author Name Unknown Organization [place] [address] [address] [place] [phone] Care Team Providers Care Office Services Representative Name Role Phone Beatriz Osborne Primary Care P maria de jesus [phone] [phone] Date(s): 10/28/22 - 10/28/22 [facility] 0 [facility] 207 [facility] [address] [address] [phone] Discharge Disposition: Home or Self Care Attending Physician: MD Claros Christopher Allergies, Adverse Reactions, Alerts No Known Allergies Immunizations Given and Recorded Vaccine Date Status Refusal Reason pneumococcal 20-valent conjugate vaccine 1 01/29/22 Given influenza virus vaccine, inactivated 2 01/29/22 Gi gerardo influenza virus vaccine, inactivated 01/01/21 Give n SARS-CoV-2 (COVID-19) mRNA BNT-162b2 vax 3 11/26/20 [...] puff, inhaled, qid, Disp# 18 g, Pharmacy: [facility]/pharmacy #[id number] Start Date: 11/20/21 Status: Ordered atorvastatin 40 mg oral tablet Start: 04/13/22 16:27:00 EST, 1 tab, PO, qhs, Disp# 90 tab, Refills: 3, Pharmacy: [facility] Start Date: 04/13/22 Status: Ordered finasteride 5 mg oral tablet Start: 08/09/22 11:24:00 EDT, 1 tab, PO, Daily, Disp# 90 tab, Refills: 2, please send medications to patients home address, Pharmacy: [facility] Start Date: 08/09/22 Status: Ordered Flomax 0.4 mg oral capsule Start: 08/09/22 11:24:00 EDT, 1 cap, PO, Daily, Disp# 90 cap, Refills: 2, Pharmacy: [facility] Start Date: 08/09/22 Status: Ordered hydroCHLOROthiazide-lisinopril 12.5 mg-10 mg oral tablet Start: 08/09/22 11:24:00 EDT, 1 tab, PO, Daily, Disp# 90 tab, Refills: 2, Pharmacy: [facility] Start Date: 08/09/22 Status: Ordered Jardiance 25 mg oral tablet Start: 10/13/22 13:20:00 EDT, 1 tab, PO, qAM, Disp# 90 tab, Refills: 1, Pharmacy: [facility] Start Date: 10/13/22 Stop Date: 04/11/23 Status: Ordered metFORMIN 1000 mg oral tablet Start: 10/13/22 13:20:00 EDT, 1 tab, PO, bid, Disp# 180 tab, Refills: 1, Pharmacy: [facility] Start Date: 10/13/22 Stop Date: 04/11/23 Status: Ordered omeprazole 40 mg oral delayed release capsule Start: 05/19/21 10:00:00 EDT, 1 cap, PO, Daily, Disp# 30 cap, Take at bedtime., Pharmacy: [facility]/pharmacy #[id number] Start Date: 05/19/21 Status: Ordered One Touch Delica Plus (30G) Lancets Start: 01/08/22 11:50:00 EST, See Instructions, Disp# 90 each, Refills: 3, Glucose monitoring once daily ICD: E11.9, Pharmacy: [facility] Start Date: 01/08/22 Status: Ordered One Touch Verio Glucose Monitor Start: 07/10/20 17:15:00 EDT, See Instructions, Disp# 1 each, Refills: 0, Glucometer for home testing, Pharmacy: [facility] Start Date: 07/10/20 Status: Ordered One Touch Verio Test Strips Start: 04/13/22 16:27:00 EST, See Instructions, Disp# 100 strip, Refills: 3, Testing glucose at home once daily E11.9, Pharmacy: [facility] Start Date: 04/13/22 Status: Ordered PROzac 40 mg oral capsule Start: 04/13/22 16:27:00 EST, 1 cap, PO, Daily, Disp# 90 cap, Refills: 3, Pharmacy: [facility] Start Date: 04/13/22 Status: Ordered Trulicity Pen 4.5 mg/0.5 mL subcutaneous solution Start: 10/08/22 10:29:00 EDT, 4.5 mg =, subQ, q7days, Disp# 2 mL, Refills: 3, Pharmacy: [facility] Start Date: 10/08/22 Status: Ordered Wellbutrin XL 150 mg/24 hours oral tablet, extended release Start: 04/13/22 16:27:00 EST, 1 tab, PO, Daily, Disp# 90 tab, Refills: 3, Note to Pharmacy: The SR 150 mg bid dose has been D/C, Pharmacy: [facility] Start Date: 04/13/22 Stop Date: 04/08/23 Status: Ordered Xanax 1 mg oral tablet Start: 07/04/20 8:39:00 EDT, 1 tab, PO, tid, PRN: as needed for anxiety Start Date: 07/04/20 Status: Ordered Problem List Condition Confirmation Course Effective Dates Status H ealth Status Informant BMI 37.0-37.9, adult Confirmed Active Diabetes Confirmed Active Diabetic nutritional counseling completed Confirmed Active Anxiety Confirmed Active Type 2 diabetes mellitus with hyperglycemia 1 Confirmed Active Morbid obesity 2 Confirmed Active Major depression, recurrent, chronic Confirmed Active Skin lesion Confirmed Active 1per personnel assistant (rn) audit completed 01/27/21 2BMI >35 with diabetes Procedures Procedure Date Related Diagnosis Body Site [...] but limited by prep quality. 2Right Left Social History Social History Type Response Tobacco Former smoker, Smoke less tobacco use: Former smoker cigarettes, quit 20 years ago at age 44. Smoking Status Never smoked cigaret keith Sex Male Patient Care team information Care Team Personnel Name: Sarah Booker DO, Mariana Annette Position: Physician - Family Med Member Role: Primary Care Provider Address: Address: [address] [place] [address] [place]
--- OUTSIDE RECORDS SUMMARY | 2023-02-14 23:41 | External Medical Summary | Continuity of Care Document ---
Author Name Unknown Organization [address] Address [address] [place] [address] [id number] Care Team Providers Care Bingo Cashier Name Role Phone Beatriz Osborne Primary Care P hynima [phone] Encounter [facility] NANCIR [id number] Date(s): 10/08/22 - 10/08/[address], [facility] [address] [place] [address] [phone] Encounter Diagnosis Body mass index [BMI] 34.0-34.9, adult(Discharge Diagnosis) - 10/08/22 Diabetes mellitus, type 2(Discharge Diagnosis) - 10/08/22 Discharge Disposition: Home or Self Care Attending Physician: Sarah Booker DO, Mariana Annette Referring Physician: Sarah Booker DO, Mariana Annette Allergies, Adverse Reactions, Alerts No Known Allergies Assessment and Plan Extracted from: Title:Office Visit Note Author:Sarah Booker DO, Mariana Annette Date:10/08/22 1.Diabetes mellitus, type 2 STATUS:Chronic, uncontrolled DATA:Labs reviewed. GOAL:A1C<7. PLAN:Increase trulicity to 4.5mg, referral to filer metal patterns. F/u 3 mo with recheck A1C. Immunizations Given and Recorded Vaccine Date Status [...] puff, inhaled, qid, Disp# 18 g, Pharmacy: [facility]/pharmacy #[id number] Start Date: 11/20/21 Status: Ordered atorvastatin 40 mg oral tablet Start: 04/13/22 16:27:00 EST, 1 tab, PO, qhs, Disp# 90 tab, Refills: 3, Pharmacy: [facility] Start Date: 04/13/22 Status: Ordered finasteride 5 mg oral tablet Start: 08/09/22 11:24:00 EDT, 1 tab, PO, Daily, Disp# 90 tab, Refills: 2, please send medications to patients home address, Pharmacy: [facility] Start Date: 08/09/22 Status: Ordered Flomax 0.4 mg oral capsule Start: 08/09/22 11:24:00 EDT, 1 cap, PO, Daily, Disp# 90 cap, Refills: 2, Pharmacy: [facility] Start Date: 08/09/22 Status: Ordered hydroCHLOROthiazide-lisinopril 12.5 mg-10 mg oral tablet Start: 08/09/22 11:24:00 EDT, 1 tab, PO, Daily, Disp# 90 tab, Refills: 2, Pharmacy: [facility] Start Date: 08/09/22 Status: Ordered Jardiance 25 mg oral tablet Start: 01/08/22 11:50:00 EST, 1 tab, PO, qAM, Disp# 90 tab, Refills: 1, Pharmacy: [facility] Start Date: 01/08/22 Stop Date: 07/07/22 Status: Ordered metFORMIN 1000 mg oral tablet Start: 07/27/21 14:49:00 EDT, 1 tab, PO, bid, Disp# 180 tab, Refills: 1, Pharmacy: [facility] Start Date: 07/27/21 Stop Date: 01/23/22 Status: Ordered omeprazole 40 mg oral delayed release capsule Start: 05/19/21 10:00:00 EDT, 1 cap, PO, Daily, Disp# 30 cap, Take at bedtime., Pharmacy: [facility]/pharmacy #[id number] Start Date: 05/19/21 Status: Ordered One Touch Delica Plus (30G) Lancets Start: 01/08/22 11:50:00 EST, See Instructions, Disp# 90 each, Refills: 3, Glucose monitoring once daily ICD: E11.9, Pharmacy: [facility] Start Date: 01/08/22 Status: Ordered One Touch Verio Glucose Monitor Start: 07/10/20 17:15:00 EDT, See Instructions, Disp# 1 each, Refills: 0, Glucometer for home testing, Pharmacy: [facility] Start Date: 07/10/20 Status: Ordered One Touch Verio Test Strips Start: 04/13/22 16:27:00 EST, See Instructions, Disp# 100 strip, Refills: 3, Testing glucose at home once daily E11.9, Pharmacy: [facility] Start Date: 04/13/22 Status: Ordered PROzac 40 mg oral capsule Start: 04/13/22 16:27:00 EST, 1 cap, PO, Daily, Disp# 90 cap, Refills: 3, Pharmacy: [facility] Start Date: 04/13/22 Status: Ordered Trulicity Pen 4.5 mg/0.5 mL subcutaneous solution Start: 10/08/22 10:29:00 EDT, 4.5 mg =, subQ, q7days, Disp# 2 mL, Refills: 3, Pharmacy: [facility] Start Date: 10/08/22 Status: Ordered Wellbutrin XL 150 mg/24 hours oral tablet, extended release Start: 04/13/22 16:27:00 EST, 1 tab, PO, Daily, Disp# 90 tab, Refills: 3, Note to Pharmacy: The SR 150 mg bid dose has been D/C, Pharmacy: [facility] Start Date: 04/13/22 Stop Date: 04/08/23 Status: Ordered Xanax 1 mg oral tablet Start: 07/04/20 8:39:00 EDT, 1 tab, PO, tid, PRN: as needed for anxiety Start Date: 07/04/20 Status: Ordered Mental Status 10/08/22 Barriers to Learning one year None evide nt Mandatory Health Literacy Documentation Yes Health Literacy Communication Barriers N ever Primary Language Mosotho Problem List Condition Confirmation Course Effective Dates Status H ealth Status Informant BMI 37.0-37.9, adult Confirmed Active Diabetes Confirmed Active Diabetic nutritional counseling completed Confirmed Active Anxiety Confirmed Active Type 2 diabetes mellitus with hyperglycemia 1 Confirmed Active Morbid obesity 2 Confirmed Active Major depression, recurrent, chronic Confirmed Active Skin lesion Confirmed Active 1per disability hearing officer (rn) audit completed 01/27/21 2BMI >35 with diabetes Diagnosis Diagnosis Type Effective Dates Health Status Cl inical Service Informant Body mass index [BMI] 34.0-34.9, adult Discharge Diagnosis 10/08/22 Non-Specified Diabetes mellitus, type 2 Discharge Diagnosis 10/08/22 Non-Specified Procedures Procedure Date Related Diagnosis Body [...] recent to oldest [Reference Range]: 1 Height 190.5 cm (10/08/22 10:07 AM) Patient Weight 125.4 kg (10/08/22 10:07 AM) Body Mass Index 34.55 kg/m2 (10/08/22 10:07 AM) Temperature [36.5-37.9 DegC] 36.0 DegC *LOW* (10/08/22 10:07 AM) Heart Rate 62 bpm (10/08/22 10:07 AM) Respiratory Rate 16 br/min (10/08/22 10:07 AM) Blood Pressure 126/62mmHg (10/08/22 10:07 AM) Cuff Pulse Pressure 64 mmHg (10/08/22 10:07 AM) Social History Social History Type Response Tobacco Former smoker, Smoke less tobacco use: Former smoker cigarettes, quit 20 years ago at age 44. Smoking Status Never smoked cigaret keith Sex Male FCM Outpt Note * Sarah Booker DO, Mariana Annette: PERFORM Event Display: FCM Outpt Note Authored Date: Chief Complaint follow up on labs History of Present Illness Patient presents to f/u on DM type 2. Diabetes Type II,uncontrolled with hyperglycemia - current regimen includes: trulicity 3mg weekly, jardiance 25mg daily, metformin 1000mg BID -on statin therapy and ACEi/ARB per medication list - adherent to present medication regimen - Hgb A1C 7.8 - FBs-180s - Not as active as usual due to heat. - Has been eating more bread than usual. Interested in meeting with cutting table operator first. - sees ophthalmology every Fall - no retinopathy Review of Systems Constitutional: No fever, No chills, No fatigue._ Respiratory: No shortness of breath, No cough, No wheezing. _ Cardiovascular: no lightheadedness/presyncope, No chest pain, No palpitations._ Gastrointestinal: No nausea, No vomiting, No diarrhea, No constipation, No heartburn, No abdominal pain._ Skin: No rash, No pruritus, No breakdown._ Neurologic:No abnormal balance, No numbness, No tingling, No headache._ Physical Exam Vitals & Measurements T:36.0C HR:62(Monitored) RR:16 BP:126/62 SpO2:96% HT:190.5cm WT:125.400kg(Dosing) WT:125.4kg BMI:34.55 PHQ2 Data(Data Documented on:10/08/2022 10:07) Emotional health assessment NEGATIVE General: _Alert and oriented, No acute distress Cardiovascular: _Normal rate, Regular rhythm, No murmur, No gallop. Respiratory: _Lungs are clear to auscultation, Respirations are non-labored, Breath sounds are equal Psych: Mood-affect congruence. Reports no SI/HI. Speech is of normal pace and content Assessment/Plan 1.Diabetes mellitus, type 2 STATUS:Chronic, uncontrolled DATA:Labs reviewed. GOAL:A1C<7. PLAN:Increase trulicity to 4.5mg, referral to filer metal patterns. F/u 3 mo with recheck A1C. Attestation Time spent: Pre-visit plannin Goby-ok-ehma visit: 20 Post-visit (orders/documentation/coordination of care):5 Total visit time: 30 Problem List/Past Medical History Ongoing Anxiety BMI [...] tablet), 1 tab, PO, Daily, 2 refills metFORMIN(metFORMIN 1000 mg oral tablet), 1000 mg= [...] Health Maintenance Pending(in the next year) OverDue Falls Plan of Care due01/05/22and every 1year Adult Influenza Vaccine due08/14/22and every 1year Due Adult COVID-19 Vaccination due10/08/22Unknown Frequency Hepatitis C Screening due10/08/22One-time only Shingles Vaccine due10/08/22One-time only Due In Future Medicare Annual Wellness Visit not due until01/30/23and every 1year Diabetes Management A1c not due until10/05/23and every 1year Body Mass Index not due until10/08/23and every 1year Satisfied(in the past 1 year) Satisfied Adult Influenza Vaccine on01/29/22.Satisfied by ALEXANDER Munoz Angela Body Mass Index on10/08/22.Satisfied by ALEXANDER Leslie Angela Diabetes Management A1c on10/05/22.Satisfied by Contributor_system, Atonarp Diabetes Nephropathy Management on04/05/22.Satisfied by Contributor_system, [email or web address] Diabetic Eye Exam on11/14/21.Satisfied by ACE Kinsey, Deena Lipid Screening on04/05/22.Satisfied by Contributor_system, [email or web address] Medicare Annual Wellness Visit on01/30/22.Satisfied by TRAVON Conde, Sydnee Álvarez Lab Results 30 Day Labs Last Updated 10/05/22 11:56 10/05/22 1118 HbA1c7.8H Estimated Average [id number] Electronic Signature on File Electronically Reviewed/Signed by: Beatriz Booker DO Author Signature Dt/Tm:10/08/2022 11:05 AM Department of Family Medicine [facility] Patient Care team information Care Team Personnel Name: Sarah Booker DO, Mariana Annette Position: Physician - Family Med Member Role: Primary Care Provider Address: Address: [address] [place] [address]
--- OUTSIDE RECORDS SUMMARY | 2023-02-14 23:41 | External Medical Summary | Summary of Care ---
Author Name Unknown Organization [facility] Address [address] [facility] [place] [address] Phone [phone] Care Team Providers Care Service Center Assistant Name Role Phone AmayaSydnee cunningham TRAVON Primary Care Provider Reason for Visit * Reason Onset Date Comments Appointment 12/28/2022 Encounter Details Date Type Department Care Team ([facility] Contact Info) Description 12/28/2022 Telephone Gastroenterology, [facility] [address] [place] [id number] Polina Elliott MD [address] [place] [phone] Appointment Allergies No known active allergiesdocumented as [...] Overview: Information given to pt LOC PRIM [id number] 08/20/2005 Enthesopathy of knee 08/20/2005 ADJ DISORDER [...] encounter Miscellaneous Notes * Telephone Encounter - Robel Burroughs OSA - 12/28/2022 11:40 AM EST LMOM for pt to call back to schedule * Telephone Encounter - Christine Barnett OSA - 12/28/2022 9:33 AM EST Pt had colonoscopy 06/17/22, to have repeat 6-12 months. Thanks documented in this encounter Plan of Treatment Health Maintenance Due Date Last Done Comments Zoster Vaccines (1 of 2) 2004 Hepatitis B (1 of 3 - Risk 3-dose series) 2014 Albumin/Creatinine Ratio 05/25/2020 020, 08/20/2018, 02/04/2018, Additional history exists Depression Screening 11/12/2020 11/13/2019 Diabetic Foot Exam 11/21/2020 11/22/2019, 0 08/24/2018, 08/12/2017, Additional history exists Pneumococcal Vaccine: 65+ Years (3 - PPSV23 or PCV20) 11/21/2020 11/22/2019, 08/20/2005 HbA1c 11/25/2020 05/26/2020, 03/2019, 05/26/2019, Additional history [...] 10/24/2028 10/24/2018, 11/16/2007 AAA Screening Completed 11/26/2019 GARDASIL-HPV IMMUNIZATION SERIES Aged Out No longer eligible based on patient's age to complete this topic MENINGOCOCCAL (MENACTRA/MENVEO) Aged Out No longer eligible based on patient's age to complete this topic documented as of this encounter Medical Devices Not on filedocumented as of this encounter Care Teams Service Center Assistant Relationship Specialty Start Date End Date Sydnee Conde CRNP [address] [address] [place] [address] [place] [address], [place] [address] PCP - General Nurse Practitioner 02/01/22 documented as of this encounter
--- OUTSIDE RECORDS SUMMARY | 2023-02-14 23:41 | External Medical Summary | Summary of Care ---
Author Name Unknown Organization [facility] Address [address] [place] [address] Phone [phone] Care Team Providers Care Perforator Name Role Phone Sydnee Conde Primary Care Provider Encounter Details Date Type Department Care Team Description 11/15/2022 Orders Only Outcomes Research Department [address] [place] [address] Mariela Green CHRA [employer] [facility] Other*[id number] Allergies No known active allergiesdocumented as of this encounter (statuses as of 11/15/2022) Medications Medication Sig Dispensed Refills Start Date [...] as of this encounter (statuses as of 11/15/2022) Active Problems Problem Noted Date Obesity, Class II, BMI 35-39.9, isolated (see actual BMI) 06/20/2020 JACIEL (obstructive sleep apnea) 06/20/2020 Prostate cancer screening 02/18/2020 Left hydrocele 02/18/2020 BPH with obstruction/lower urinary tract symptoms 02/18/2020 Impotence 02/18/2020 Nocturia 02/18/2020 Migraine variant 01/19/2019 Right hydrocele 03/30/2016 Essential hypertension with goal blood p ressure less than 140/90 05/03/2011 Obesity, morbid (more than 100 lbs over ideal weight or BMI > 40) 07/29/2009 Overview: Per Obesity Protocol, #19 ICD-10 update of inactive term DYSLIPIDEMIA, GOAL LDL BELOW 100 009 Overview: Per Lipid Taxonomy. Type 2 diabetes mellitus with hemoglobin A1c goal of less than 7.0% 12/12/2008 Overview: Per Diabetes Taxonomy. ICD-10 update of inactive term Anxiety state 02/09/2007 Dyslipidemia 12/10/2005 Overview: Per Lipid Taxonomy. ADVANCE DIRECTIVE INFORMATION 08/20/2005 Overview: Information given to pt LOC PRIM [id number] 08/20/2005 Enthesopathy of knee 08/20/2005 ADJ DISORDER W/DEPRES MOOD 08/20/2005 documented as of this encounter (statuses as of 11/15/2022) Resolved Problems Problem Noted Date Resolved Date Scalp laceration 01/14/2013 06/15/2013 Abnormal results of liver function studies 11/1002/11/2017 Overview: Fatty liver HTN, goal below 130/80 03/12/2009 2 Overview: Per HTN Taxonomy. Ventral hernia, unspecified, without mention of obstruction or gangrene 09/12/2008 02/11/2017 Type 2 diabetes mellitus wit h hemoglobin A1c goal of less than 7.0% 08/20/2005 12/12/2008 Overview: Per Diabetes Taxonomy. ICD-10 update of inactive term HTN, goal below 140/90 08/20/2005 0 Overview: Per HTN Taxonomy. documented as of this encounter (statuses as of 11/15/2022) Immunizations Name Administration Dates Next Due Pneumococcal [...] drink = 0.6 oz pur e alcohol) Food Insecurity Answer Date Recorded Within the past 12 months, y ou worried that your food would run out before you got money to buy more. Never true 11/22/2019 Within the past 12 months, t he food you bought just didn't last and you didn't have money to get more. Never true 11/22/2019 Sex Assigned at Date Recorded Male 05/30/2018 3:50 PM E DT Job Start Date Occupation Industry Not on file Not on file Not on file documented as of this encounter Plan of Treatment Scheduled Orders Name Type Priority Associated Diagnoses Orde r Schedule MYCODE SUBSEQUENT ADULT Lab Routine MyCode Research Other*[id number] Every 6 Months for 2 Occurrences starting 11/15/2022 until 12/05/2023 Health Maintenance Due Date Last Done Comments Zoster Vaccines (1 of 2) 2004 Albumin/Creatinine Ratio 05/25/2020 020, 08/20/2018, 02/04/2018, Additional history exists Depression Screening 11/12/2020 11/13/2019 Diabetic Foot Exam 11/21/2020 11/22/2019, 0 08/24/2018, 08/12/2017, Additional history exists Pneumococcal Vaccine: 65+ Years (3 - PPSV23 or PCV20) 11/21/2020 11/22/2019, 08/20/2005 HbA1c 11/25/2020 05/26/2020, 03/2019, 05/26/2019, Additional history exists DIABETES-EYE EXAM 12/25/2020 12/26/2019, , 10/19/2017, Additional history exists COVID-19 Vaccine (4 - Pfizer series) 01/21/2021 11/26/2020, 05/05/2020, 04/14/2020 B-12 05/26/2021 05/26/2020, 08/2018, 08/08/2017 GFR 05/26/2021 05/26/2020, 05/15, 08/20/2018, Additional history exists Influenza Vaccine (FLU shot) (#1) 2022 11/22/2019, [...] on patient's age to complete this topic Hepatitis B Aged Out No longer eligi ble based on patient's age to complete this topic MENINGOCOCCAL (MENACTRA/MENVEO) Aged Out No longer eligible based on patient's age to complete this topic documented as of this encounter Medical Devices Not on filedocumented as of this encounter Visit Diagnoses Diagnosis MyCode Research Other*[id number] documented in this encounter Care Teams Perforator Relationship Specialty Start Date End Date Sydnee Conde CRNP [address] [place] [address] Dr [place] [address] [place] [address], [place] [address] PCP - General Nurse Practitioner 02/01/22 documented as of this encounter
--- OUTSIDE RECORDS SUMMARY | 2023-02-14 23:41 | External Medical Summary | Continuity of Care Document ---
Author Name Unknown Organization [facility] [address] Address [address] [place], [place] [address] Care Team Providers Care Senior Firmware Engineer Name Role Phone Hema Mathias Primary Care Physician [phone] [id number] Date[facility]s): 10/05/22 - 10/05/22 [facility] [address] [facility] [phone] Encounter Diagnosis Type 2 diabetes mellitus without complications(Final) - Discharge Disposition: Home or Self Care Attending Physician: TRAVON Conde Susan M Referring Physician: TRAVON Conde Susan M Allergies, Adverse Reactions, Alerts No Known Allergies [...] puff, inhaled, qid, Disp# 18 g, Pharmacy: [facility]/pharmacy #[id number] Start Date: 11/20/21 Status: Ordered atorvastatin 40 mg oral tablet Start: 04/13/22 16:27:00 EST, 1 tab, PO, qhs, Disp# 90 tab, Refills: 3, Pharmacy: [facility] Start Date: 04/13/22 Status: Ordered finasteride 5 mg oral tablet Start: 08/09/22 11:24:00 EDT, 1 tab, PO, Daily, Disp# 90 tab, Refills: 2, please send medications to patients home address, Pharmacy: [facility] Start Date: 08/09/22 Status: Ordered Flomax 0.4 mg oral capsule Start: 08/09/22 11:24:00 EDT, 1 cap, PO, Daily, Disp# 90 cap, Refills: 2, Pharmacy: [facility] Start Date: 08/09/22 Status: Ordered hydroCHLOROthiazide-lisinopril 12.5 mg-10 mg oral tablet Start: 08/09/22 11:24:00 EDT, 1 tab, PO, Daily, Disp# 90 tab, Refills: 2, Pharmacy: [facility] Start Date: 08/09/22 Status: Ordered Jardiance 25 mg oral tablet Start: 01/08/22 11:50:00 EST, 1 tab, PO, qAM, Disp# 90 tab, Refills: 1, Pharmacy: [facility] Start Date: 01/08/22 Stop Date: 07/07/22 Status: Ordered metFORMIN 1000 mg oral tablet Start: 07/27/21 14:49:00 EDT, 1 tab, PO, bid, Disp# 180 tab, Refills: 1, Pharmacy: [facility] Start Date: 07/27/21 Stop Date: 01/23/22 Status: Ordered omeprazole 40 mg oral delayed release capsule Start: 05/19/21 10:00:00 EDT, 1 cap, PO, Daily, Disp# 30 cap, Take at bedtime., Pharmacy: [facility]/pharmacy #[id number] Start Date: 05/19/21 Status: Ordered One Touch Delica Plus (30G) Lancets Start: 01/08/22 11:50:00 EST, See Instructions, Disp# 90 each, Refills: 3, Glucose monitoring once daily ICD: E11.9, Pharmacy: [facility] Start Date: 01/08/22 Status: Ordered One Touch Verio Glucose Monitor Start: 07/10/20 17:15:00 EDT, See Instructions, Disp# 1 each, Refills: 0, Glucometer for home testing, Pharmacy: [facility] Start Date: 07/10/20 Status: Ordered One Touch Verio Test Strips Start: 04/13/22 16:27:00 EST, See Instructions, Disp# 100 strip, Refills: 3, Testing glucose at home once daily E11.9, Pharmacy: [facility] Start Date: 04/13/22 Status: Ordered PROzac 40 mg oral capsule Start: 04/13/22 16:27:00 EST, 1 cap, PO, Daily, Disp# 90 cap, Refills: 3, Pharmacy: [facility] Start Date: 04/13/22 Status: Ordered Trulicity Pen 3 mg/0.5 mL subcutaneous solution Start: 04/06/22 9:08:00 EST, 3 mg =, subQ, q7days, Disp# 12 pen_needle, Note to Pharmacy: Will start this dose on 05/23/2022, Pharmacy: [facility] Start Date: 04/06/22 Status: Ordered Wellbutrin XL 150 mg/24 hours oral tablet, extended release Start: 04/13/22 16:27:00 EST, 1 tab, PO, Daily, Disp# 90 tab, Refills: 3, Note to Pharmacy: The SR 150 mg bid dose has been D/C, Pharmacy: [facility] Start Date: 04/13/22 Stop Date: [...] Confirmed Active Skin lesion Confirmed Active 1per type soldering machine tender (rn) audit completed 01/27/21 2BMI >35 with [...] but limited by prep quality. 2Right Left Results Laboratory List Name Date Hemoglobin A1C (HEMOGLOBIN, A1C) 10/05/22 Most recent to oldest [Reference Range]: 1 Estimated Average Glucose 177 mg/dL 1 (10/05/22 11:18 AM) HbA1c [4.0-6.0 %] 7.8 % *HI* (10/05/22 11:18 AM) 1Result Comment: Testing Performed By: [facility] [address], [address], [place] [address] Social History Social History Type Response Tobacco Former smoker, Smoke less tobacco use: Former smoker cigarettes, quit 20 years ago at age 44. Smoking Status Former Smoker, quit > 1 yr Sex Male Patient Care team information Care Team Personnel Name: MD Stew, Hema Dupree Position: Physician Member Role: Primary Care Provider Address: Address: [address] [place] [address]
--- OUTSIDE RECORDS SUMMARY | 2023-02-14 23:41 | External Medical Summary | Summary of Care ---
Author Name Unknown Organization [facility] Address [address] [facility] [place] [address] Phone [phone] Care Team Providers Care Hand Cementer Name Role Phone AmayaSydnee cunningham TRAVON Primary Care Provider Reason for Visit * Reason Onset Date Comments Appointment 12/28/2022 Encounter Details Date Type Department Care Team ([facility] Contact Info) Description 12/28/2022 Telephone Gastroenterology, [facility] [address] [place] [address] Polina Elliott MD [address] [place] [address] Appointment Allergies No known active allergiesdocumented as [...] Overview: Information given to pt LOC PRIM [id number] 08/20/2005 Enthesopathy of knee 08/20/2005 ADJ DISORDER [...] encounter Miscellaneous Notes * Telephone Encounter - Christine Barnett OSA [...] filedocumented as of this encounter Care Teams Hand Cementer Relationship Specialty Start Date End Date Sydnee Conde CRNP [address] [facility] [address] [place] [address] [place] [address], [place] [address] PCP - General Nurse Practitioner 02/01/22 documented as of this encounter
--- OUTSIDE RECORDS SUMMARY | 2023-02-14 23:41 | External Medical Summary | Continuity of Care Document ---
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 Name Role Phone Beatriz Osborne Primary Care P hysician [phone] Encounter [facility] [phone] Date(s): 10/11/22 - 10/11/22 [facility] [address] [address] [phone] Discharge Disposition: Home or Self Care Attending Physician: Sarah Booker DO, Mariana Annette Allergies, [...] puff, inhaled, qid, Disp# 18 g, Pharmacy: [facility]/pharmacy #[id number] Start Date: 11/20/21 Status: Ordered atorvastatin 40 mg oral tablet Start: 04/13/22 16:27:00 EST, 1 tab, PO, qhs, Disp# 90 tab, Refills: 3, Pharmacy: [facility] Start Date: 04/13/22 Status: Ordered finasteride 5 mg oral tablet Start: 08/09/22 11:24:00 EDT, 1 tab, PO, Daily, Disp# 90 tab, Refills: 2, please send medications to patients home address, Pharmacy: [facility] Start Date: 08/09/22 Status: Ordered Flomax 0.4 mg oral capsule Start: 08/09/22 11:24:00 EDT, 1 cap, PO, Daily, Disp# 90 cap, Refills: 2, Pharmacy: [facility] Start Date: 08/09/22 Status: Ordered hydroCHLOROthiazide-lisinopril 12.5 mg-10 mg oral tablet Start: 08/09/22 11:24:00 EDT, 1 tab, PO, Daily, Disp# 90 tab, Refills: 2, Pharmacy: [facility] Start Date: 08/09/22 Status: Ordered Jardiance 25 mg oral tablet Start: 10/13/22 13:20:00 EDT, 1 tab, PO, qAM, Disp# 90 tab, Refills: 1, Pharmacy: [facility] Start Date: 10/13/22 Stop Date: 04/11/23 Status: Ordered metFORMIN 1000 mg oral tablet Start: 10/13/22 13:20:00 EDT, 1 tab, PO, bid, Disp# 180 tab, Refills: 1, Pharmacy: [facility] Start Date: 10/13/22 Stop Date: 2/26/24 Status: Ordered omeprazole 40 mg oral delayed release capsule Start: 05/19/21 10:00:00 EDT, 1 cap, PO, Daily, Disp# 30 cap, Take at bedtime., Pharmacy: [facility]/pharmacy #[id number] Start Date: 05/19/21 Status: Ordered One Touch Delica Plus (30G) Lancets Start: 01/08/22 11:50:00 EST, See Instructions, Disp# 90 each, Refills: 3, Glucose monitoring once daily ICD: E11.9, Pharmacy: [facility] Start Date: 01/08/22 Status: Ordered One Touch Verio Glucose Monitor Start: 07/10/20 17:15:00 EDT, See Instructions, Disp# 1 each, Refills: 0, Glucometer for home testing, Pharmacy: [facility] Start Date: 07/10/20 Status: Ordered One Touch Verio Test Strips Start: 04/13/22 16:27:00 EST, See Instructions, Disp# 100 strip, Refills: 3, Testing glucose at home once daily E11.9, Pharmacy: [facility] Start Date: 04/13/22 Status: Ordered PROzac 40 mg oral capsule Start: 04/13/22 16:27:00 EST, 1 cap, PO, Daily, Disp# 90 cap, Refills: 3, Pharmacy: [facility] Start Date: 04/13/22 Status: Ordered Trulicity Pen 4.5 mg/0.5 mL subcutaneous solution Start: 10/08/22 10:29:00 EDT, 4.5 mg =, subQ, q7days, Disp# 2 mL, Refills: 3, Pharmacy: [facility] Start Date: 10/08/22 Status: Ordered Wellbutrin XL 150 mg/24 hours oral tablet, extended release Start: 04/13/22 16:27:00 EST, 1 tab, PO, Daily, Disp# 90 tab, Refills: 3, Note to Pharmacy: The SR 150 mg bid dose has been D/C, Pharmacy: [facility] Start Date: 04/13/22 Stop Date: [...] Confirmed Active Skin lesion Confirmed Active 1per health officer (rn) audit completed 01/27/21 2BMI >35 [...] Member Role: Primary Care Provider Address: Address: [address] [place] [address]
[2023-02-14] MEDS ORDERED: ONDANSETRON INJ 2 MG/ML 2 ML VIAL ONE (23:50)
[2023-02-14] MEDS ORDERED: MECLIZINE HCL 25 MG TAB PO STA (23:50)
[2023-02-14] MEDS ORDERED: ONDANSETRON 4 MG OD TAB PO STA (23:50)
[2023-02-15 00:29] LABS: Hemoglobin 15.6 g/dl (14.0-18.0); Mean Corpuscular Hemoglobin 29.4 pg (25.0-34.0); Mean Corpuscular Hgb Conc 32.5 g/dL (32.0-36.0); Mean Corpuscular Volume 90.4 fL (80.0-100.0); Mean Platelet Volume 9.5 fL (9.4-12.4); Platelet Count 301 K/uL (130-400); RDW Coefficient of Variation 13.3 % (11.5-14.5); Red Blood Count 5.31 M/uL (4.70-6.10); White Blood Count 11.82 K/ul (4.8-10.8)
[2023-02-15] MEDS ORDERED: SODIUM CHLORIDE 0.9% 500 ML IV ONE (00:34)
[2023-02-15] MEDS ORDERED: diphenhydrAMINE 50 MG/ML VIAL IV STA (00:34)
[2023-02-15 00:38] LABS: INR 0.9 (0.9-1.1); Partial Thromboplastin Ratio 0.9; Partial Thromboplastin Time 26 Seconds (21-31); Prothrombin Time 10.3 Seconds (9.0-12.0)
--- NOTE | 2023-02-15 00:38 | Emergency Department Note ---
History of Present Illness General Chief complaint: Vertigo Time Seen by Provider: 02/15/23 00:00 History of Present Illness This 67-year-old gentleman presents to the ER complaining of dizziness for the past few days that is steadily getting worse. He states he now feels unsteady with his gait. He states he has a distant history of vertigo but this feels different. Blood sugars have been in the 180s today. He does take Jardiance. Patient denies chest pain, dyspnea, fevers, flulike illness, diarrhea, cough, congestion, abdominal pain, numbness, tingling, localized weakness. Home Medications Medication Instructions Recorded Confirmed Type atorvastatin 40 mg tablet 40 mg PO HS 03/11/19 02/15/23 History metformin 1,000 mg tablet 1,000 mg PO REPLACED BY [facility] 03/11/19 02/15/23 History bupropion HCl 150 mg 24 hr tablet, 150 mg PO REPLACED BY [facility] 02/15/23 02/15/23 History extended release dulaglutide 4.5 mg/0.5 mL 4.5 mg subcut WK 02/15/23 02/15/23 History subcutaneous pen injector (Trulicity) empagliflozin 25 mg tablet 25 mg PO REPLACED BY [facility] 02/15/23 02/15/23 History (Jardiance) finasteride 5 mg tablet 5 mg PO 02/15/23 02/15/23 History fluoxetine 40 mg capsule 40 mg PO REPLACED BY [facility] 02/15/23 02/15/23 History lisinopril 10 1 tab PO REPLACED BY [facility] 02/15/23 02/15/23 History mg-hydrochlorothiazide 12.5 mg tablet tamsulosin 0.4 mg capsule 0.4 mg PO 02/15/23 02/15/23 History Allergies Allergy/AdvReac Type Severity Reaction Status Date / Time No Known Allergies Allergy Unknown Verified 02/15/23 01:28 Past Med/Surg History Medical History Right knee DJD BPH (benign prostatic hyperplasia) Depression Diabetes Hypertension Surgical History H/O shoulder surgery Right and Left Shoulder Surgery Previous back surgery History of appendectomy H/O umbilical hernia repair Social History Smoking Status: Former smoker Preferred Language: Malaysian marital status: Current Living Situation: Family current occupational status: employed Feels Safe at Home: Yes Review of Systems A total of 10 systems reviewed and were otherwise negative Physical Exam Vital Signs Vital Signs - 24 hr 02/14/23 23:35 02/14/23 23:39 02/14/23 23:43 Temperature 36.7 C Temperature Source Temporal Artery Scan Pulse Rate 68 Pulse Rate [Apical] 65 Pulse Rhythm Regular Pulse Rhythm [Apical] Regular Pulse Strength Normal Pulse Strength [Apical] Normal Respiratory Rate 16 20 Respiratory Effort / Characteristics Non-Labored Spontaneous Non-Labored Spontaneous Respiratory Depth Normal Normal Respiratory Pattern Regular Blood Pressure 188/97 H Blood Pressure [Right Arm] 146/87 H Blood Pressure Mean 127 Blood Pressure Mean [Right Arm] 106 Blood Pressure Position Sitting Blood Pressure Position [Right Arm] Lying Pulse Oximetry 93 97 93 Oxygen Delivery Method Room Air Room Air Room Air Oxygen Flow Rate 0 Sepsis Recent Fever Within 48 Hours No Sepsis New/Unexplained Change in Mental Status N/A Sepsis Action Taken by Nursing No Action Required 02/14/23 23:43 02/15/23 00:32 02/15/23 03:00 Temperature Temperature Source Pulse Rate 65 65 Pulse Rate [Apical] 79 Pulse Rhythm Regular Pulse Rhythm [Apical] Regular Pulse Strength Pulse Strength [Apical] Normal Respiratory Rate 16 16 Respiratory Effort / Characteristics Non-Labored Spontaneous Respiratory Depth Normal Respiratory Pattern Regular Blood Pressure Blood Pressure [Right Arm] 151/92 H Blood Pressure Mean Blood Pressure Mean [Right Arm] 111 Blood Pressure Position Blood Pressure Position [Right Arm] Lying Pulse Oximetry 93 96 Oxygen Delivery Method Room Air Room Air Oxygen Flow Rate 0 Sepsis Recent Fever Within 48 Hours Sepsis New/Unexplained Change in Mental Status Sepsis Action Taken by Nursing VITALS: Vitals are noted on the nurse's note and reviewed by myself. Vital signs stable. GENERAL: Pleasant gentleman, in no acute distress, nondiaphoretic, well- developed well-nourished. SKIN: Capillary reflex less than 2 seconds. HEENT: Normocephalic. PERRLA. EOMI. Nares patent. Mucous membranes moist. Neck is supple without nuchal rigidity. No nystagmus HEART: Regular rate and rhythm LUNGS: Clear to auscultation bilaterally without wheezes, rales or rhonchi. No retractions or accessory muscle use. ABDOMEN: Positive bowel sounds x 4. Normal tympanic percussion. Soft, nontender, without masses or organomegaly. Garnett sign negative. No guarding or rebound tenderness. No CVA tenderness MUSCULOSKELETAL: No gross musculoskeletal defects. 5-5 strength throughout. NEURO: Patient was alert and oriented to person place and time. Normal sensation to light and sharp touch. Cranial nerves II through XII grossly intact. No pronator drift. Cerebellar exam intact. No focal neurological deficits. Course Administered Medications Discontinued Medications Diphenhydramine HCl (Diphenhydramine 50 Mg/Ml Vial) 25 mg IV NOW STA Stop: 02/15/23 00:35 Last Admin: 02/15/23 01:01 Dose: 25 mg Documented By: KYREE Sodium Chloride (Nss) 500 mls @ 999 mls/hr IV .Q31M ONE Stop: 02/15/23 01:04 Last Infusion: 02/15/23 02:30 Dose: Infused Documented By: Admin: 02/15/23 01:06 Dose: 999 mls/hr Documented By: KYREE Ioversol (Optiray 320 125ml) 115 ml IV ONCE ONE Stop: 02/15/23 01:35 Last Admin: 02/15/23 01:34 Dose: 115 ml Documented By: KIMANI Meclizine HCl (Meclizine Hcl 25 Mg Tab) 25 mg PO NOW STA Stop: 02/14/23 23:51 Last Admin: 02/14/23 23:59 Dose: 25 mg Documented By: SHAHBAZ Ondansetron HCl (Ondansetron 4 Mg Od Tab) 4 mg PO NOW STA Stop: 02/14/23 23:51 Last Admin: 02/15/23 00:00 Dose: Not Given Documented By: SHAHBAZ Ondansetron HCl (Ondansetron Inj 2 Mg/Ml 2 Ml Vial) Confirm Administered Dose 4 mg .ROUTE .STK-MED ONE Stop: 02/14/23 23:51 Last Admin: 02/15/23 00:07 Dose: 4 mg Documented By: CHERI Medical Decision Making Medical Records Attestation: I reviewed the patient's medical records. Home Medications Current Medication List: was personally reviewed by me Laboratory Data Attestation: I reviewed the patient's lab results. 02/14/23 23:56 02/14/23 23:56 Lab Results 02/14/23 02/15/23 02/15/23 Range/Units 23:56 00:00 Unknown WBC 11.82 H (4.8-10.8) K/ul RBC 5.31 (4.70-6.10) M/uL Hgb 15.6 (14.0-18.0) g/dl Hct 48.0 (42.0-52.0) % MCV 90.4 (80.0-100.0) fL MCH 29.4 (25.0-34.0) pg MCHC 32.5 (32.0-36.0) g/dL RDW Std Deviation 44.0 (36.4-46.3) fL RDW Coeff of [place] 13.3 (11.5-14.5) % Plt Count 301 (130-400) K/uL MPV 9.5 (9.4-12.4) fL PT 10.3 (9.0-12.0) Seconds INR 0.9 (0.9-1.1) APTT 26 (21-31) Seconds PTT Ratio 0.9 Sodium 136 (136-145) mmol/L Potassium 4.6 (3.5-5.1) mmol/L Chloride 103 (98-107) mmol/L Carbon Dioxide 24 (21-32) mmol/L Anion Gap 9 (3-11) BUN 15 (6-23) mg/dl Creatinine 0.85 (0.6-1.4) mg/dl Est Cr Clr Drug Dosing 109.7 ml/min Est GFR ( Amer) 103.8 ml/min Est GFR (Non-Af Amer) 89.5 ml/min BUN/Creatinine Ratio 17.6 (10-20) Glucose 224 H (70-99(Fasting)) mg/dl Calcium 9.7 (8.6-10.3) mg/dl Magnesium 2.1 (1.7-2.4) mg/dl Total Bilirubin 0.4 (0.2-1.0) mg/dl AST 21 (13-39) U/L ALT 38 (7-52) U/L Alkaline Phosphatase 72 (34-104) U/L Total Protein 7.3 (6.0-8.3) gm/dl Albumin 4.2 (3.4-5.0) gm/dl Globulin 3.1 (2.5-4.0) gm/dl Albumin/Globulin Ratio 1.4 (0.9-2) TSH 2.076 (0.300-4.500) uIu/ml Urine Color Yellow Urine Appearance Clear (Clear) Urine pH 6.5 (4.5-7.5) Ur Specific [place] 1.043 H (1.000-1.030) Urine Protein Negative (Negative) Urine Glucose (UA) 3+ H (Negative) Urine Ketones Trace H (Negative) Urine Blood Negative (Negative) Urine Nitrite Negative (Negative) Urine Bilirubin Negative (Negative) Urine Urobilinogen Negative (Negative) Ur Leukocyte Esterase Negative (Negative) SARS-CoV-2 (PCR) NEGATIVE (Negative) Influenza Type A (PCR) Negative (Neg) Influenza Type B (PCR) Negative (Neg) RSV (RT-PCR) Negative (Neg) Imaging Data Attestation: I personally reviewed and interpreted this imaging study as follows: Radiologist's Impression: Head CT 02/14/23 23:43 Exam(s): CT HEAD Without Contrast EXAM: CT Head Without Intravenous Contrast CLINICAL HISTORY: Neuro deficit, acute, stroke suspected. TECHNIQUE: Axial computed tomography images of the head/brain without intravenous contrast. CTDI is 47.37 mGy and DLP is 799.24 mGy-cm. Automated exposure control was utilized for the study. A dose lowering technique was utilized adhering to the principles of ALARA. COMPARISON: No relevant prior studies available. FINDINGS: Brain: No intracranial hemorrhage, mass-effect or midline shift. No abnormal extra axial fluid. No evidence of acute infarct. Mild periventricular white matter hypodensities are most consistent with chronic microangiopathy. Ventricles: Unremarkable. No ventriculomegaly. Bones/joints: Unremarkable. No acute fracture. Soft tissues: Unremarkable. Sinuses: Unremarkable as visualized. No acute sinusitis. Mastoid air cells: Unremarkable as visualized. No mastoid effusion. IMPRESSION: No acute intracranial finding. Electronically signed by: Nasreen Dean MD 02/15/23 02:29 AM Head CTA 02/15/23 00:36 Exam(s): CTA HEAD With Contrast IV Amt: 115 ml optiray 320 EXAM: CT Angiography Head With Intravenous Contrast CLINICAL HISTORY: Dizziness. TECHNIQUE: Axial computed tomographic angiography images of the head with intravenous contrast. CTDI is 60 mGy and DLP is 620.68 mGy-cm. Automated exposure control was utilized for the study. A dose lowering technique was utilized adhering to the principles of ALARA. MIP reconstructed images were created and reviewed. CONTRAST: Patient received 115 ml optiray 320 of IV contrast COMPARISON: No relevant prior studies available. FINDINGS: Right internal carotid artery: No acute findings. Intracranial segment is patent with no significant stenosis. No aneurysm. Right anterior cerebral artery: Unremarkable. No occlusion or significant stenosis. No aneurysm. Right middle cerebral artery: Unremarkable. No occlusion or significant stenosis. No aneurysm. Right posterior cerebral artery: Unremarkable. No occlusion or significant stenosis. No aneurysm. Right vertebral artery: Unremarkable as visualized. Left internal carotid artery: No acute findings. Intracranial segment is patent with no significant stenosis. No aneurysm. Left anterior cerebral artery: Unremarkable. No occlusion or significant stenosis. No aneurysm. Left middle cerebral artery: Unremarkable. No occlusion or significant stenosis. No aneurysm. Left posterior cerebral artery: Unremarkable. No occlusion or significant stenosis. No aneurysm. Left vertebral artery: Unremarkable as visualized. Basilar artery: Unremarkable. No occlusion or significant stenosis. No aneurysm. IMPRESSION: No acute findings in the arteries of the head/brain. Electronically signed by: Nasreen Dean MD 02/15/23 02:28 AM Neck CTA 02/15/23 00:36 Exam(s): CTA NECK With Contrast IV Amt: 115 ml optiray 320 EXAM: CT Angiography Neck With Intravenous Contrast CLINICAL HISTORY: Dizziness. TECHNIQUE: Routine carotid CT angiography protocol was performed with intravenous contrast. NASCET criteria using the distal ICAs for comparison were used for evaluation of stenoses. CTDI is 60 mGy and DLP is 620.68 mGy-cm. Automated exposure control was utilized for the study. A dose lowering technique was utilized adhering to the principles of ALARA. MIP reconstructed images were created and reviewed. CONTRAST: Patient received 115 ml optiray 320 of IV contrast COMPARISON: None. FINDINGS: VASCULATURE: Right common carotid artery: Unremarkable. No occlusion or significant stenosis. No dissection. Right internal carotid artery: Unremarkable. Extracranial segment is patent with no occlusion or significant stenosis. No dissection. Right external carotid artery: Unremarkable. No occlusion. Right vertebral artery: Unremarkable. No occlusion or significant stenosis. No dissection. Left common carotid artery: Unremarkable. No occlusion or significant stenosis. No dissection. Left internal carotid artery: Unremarkable. Extracranial segment is patent with no occlusion or significant stenosis. No dissection. Left external carotid artery: Unremarkable. No occlusion. Left vertebral artery: Unremarkable. No occlusion or significant stenosis. No dissection. NECK: Bones/joints: There are degenerative changes spine. Anterior screws and plates traverse C5-C7. No acute fracture. Soft tissues: Unremarkable. Lung apices: Airspace opacity of the lung apices could represent atelectasis and/or pulmonary edema. CAROTID STENOSIS REFERENCE USING NASCET CRITERIA: % ICA stenosis = (1 - narrowest ICA diameter/diameter of distal cervical ICA) x 100. Mild - <50% stenosis. Moderate - 50-69% stenosis. Severe - 70-94% stenosis. Near occlusion - 95-99% stenosis. Occluded - 100% stenosis. IMPRESSION: 1. No acute finding of the arteries of the neck. 2. Airspace opacity of the lung apices could represent atelectasis and/or pulmonary edema. Electronically signed by: Nasreen Dean MD 02/15/23 02:31 AM MDM Narrative Prior records/ancillary studies reviewed. Triage Nursing notes reviewed. The patient's history was concerning for dizziness and vertigo. Differential diagnosis: Etiologies such as benign positional vertigo, dehydration, hypovolemia, anemia, tumor, infection, hypoglycemia, electrolyte abnormalities, cardiac sources, intracerebral event, toxicologic, neurologic, as well as others were entertained. Physical examination: As above. No pathologic nystagmus. ER treatment provided: An order was placed for continuous cardiac monitoring. The monitor shows a rate of 60-100 with a sinus rhythm per my interpretation. IV hydration with normal saline, 500 ml. Zofran and meclizine was given by nursing. Benadryl was ordered On reassessment the patient felt well. Diagnostics interpretation by me: ECG: Ordered for dizziness ECG: Normal sinus, normal intervals, no acute ST-T wave changes. Impression normal sinus rhythm independently interpreted by myself The labs Independently Interpreted by myself revealed mild leukocytosis, hyperglycemia without DKA, euthyroid, negative urine Imaging: CT CTAs were negative for intracranial bleed or thrombus per radiology and per my independent review. Patient has no pneumonia on x-ray. Chest x-ray shows no acute consolidation, pneumothorax or free air per my independent interpretation Consultation: A consultation was placed with the hospitalist. The case was discussed and diagnostics were reviewed. The patient was evaluated in the ER for further treatment. Exam and history seem consistent with vertigo. Patient was still unsteady with his gait. He did not feel comfortable going home. He felt like he could not walk in a straight line. CTAs were negative. No bleed or obstruction. No mass. No clinical signs or symptoms of pneumonia. Stable labs. Medicine was consulted and the case was discussed. He will be evaluated the medical team for possible admission. By the evaluation outlined above emergent etiologies such as infection, hypoglycemia, electrolyte abnormalities, cardiac sources, intracerebral event, toxicologic, as well as others were deemed relatively unlikely. The pt informed about the findings as listed above. All questions were answered and pleased with the treatment. The chart was completed utilizing [employer] Speech voice recognition software. Grammatical errors, random word insertions, pronoun errors, and incomplete sentences are an occassional consequence of this system due to software limitations, ambient noise, and hardware issues. Any formal questions or concerns about the content, text, or information contained within the body of this dictation should be directly addressed to the physician respiratory assistant for clarification. Impression & Plan Vertigo, Ambulatory dysfunction Discharge Plan Visit Data Chief Complaint: Vertigo ED Provider: Lisette Sanches ED Midlevel Provider: Mariela Zambrano Discharge Problem: Vertigo, Ambulatory dysfunction Patient Disposition: Being Evaluated by Hospitalist Condition: Fair Forms Stand Alone Forms: [employer] Prescriptions Prescriptions: No Action atorvastatin 40 mg tablet 40 mg PO HS metformin 1,000 mg tablet 1,000 mg PO QAM fluoxetine 40 mg capsule 40 mg PO QAM lisinopril-hydrochlorothiazide 10-12.5 mg tablet 1 tab PO QAM finasteride 5 mg tablet 5 mg PO HS bupropion HCl 150 mg tablet extended release 24 hr 150 mg PO QAM Jardiance 25 mg tablet 25 mg PO QAM Trulicity 4.5 mg/0.5 mL pen injector 4.5 mg SUBCUT WK Rx Instructions: SUNDAYS tamsulosin 0.4 mg capsule 0.4 mg PO HS Referrals Referrals: Martin Lebron MD [Physician] -
[2023-02-15 00:41] LABS: Albumin Globulin Ratio 1.4 (0.9-2); Albumin Level 4.2 gm/dl (3.4-5.0); BUN Creatinine Ratio 17.6 (10-20); Bilirubin,Total 0.4 mg/dl (0.2-1.0); Calcium 9.7 mg/dl (8.6-10.3); Creatinine Clr Calc Pharmacy 109.7 ml/min; Est GFR (African American) 103.8 ml/min; Est GFR (Non-African American) 89.5 ml/min; Globulin 3.1 gm/dl (2.5-4.0); Magnesium 2.1 mg/dl (1.7-2.4); Potassium 4.6 mmol/L (3.5-5.1); Total Protein 7.3 gm/dl (6.0-8.3)
[2023-02-15 00:56] LABS: Thyroid Stimulating Hormone 2.076 uIu/ml (0.300-4.500)
[2023-02-15 01:07] LABS: Influenza A virus by PCR Negative (Neg); Influenza B virus by PCR Negative (Neg); RSV by PCR Negative (Neg); SARS CoV2 RNA(COVID-19) Ceph NEGATIVE (Negative)
[2023-02-15] MEDS ORDERED: OPTIRAY 320 125ml IV ONE (01:34)
[2023-02-15 01:59] LABS: Appearance Urine Clear (Clear); Bilirubin Urine Negative (Negative); Blood Urine Negative (Negative); Color Urine Yellow; Glucose Urine UA 3+ (Negative); Ketones Urine Trace (Negative); Leukocyte Esterase Urine Negative (Negative); Nitrite Urine Negative (Negative); Protein Urine Negative (Negative); Specific Gravity Urine 1.043 (1.000-1.030); Urobilinogen Urine Negative (Negative); pH Urine 6.5 (4.5-7.5)
--- NOTE | 2023-02-15 02:29 | CT Scan Report ---
Exam(s): CTA HEAD With Contrast IV Amt: 115 ml optiray 320 EXAM: CT Angiography Head With Intravenous Contrast CLINICAL HISTORY: Dizziness. TECHNIQUE: Axial computed tomographic angiography images of the head with intravenous contrast. CTDI is 60 mGy and DLP is 620.68 mGy-cm. Automated exposure control was utilized for the study. A dose lowering technique was utilized adhering to the principles of ALARA. MIP reconstructed images were created and reviewed. CONTRAST: Patient received 115 ml optiray 320 of IV contrast COMPARISON: No relevant prior studies available. FINDINGS: Right internal carotid artery: No acute findings. Intracranial segment is patent with no significant stenosis. No aneurysm. Right anterior cerebral artery: Unremarkable. No occlusion or significant stenosis. No aneurysm. Right middle cerebral artery: Unremarkable. No occlusion or significant stenosis. No aneurysm. Right posterior cerebral artery: Unremarkable. No occlusion or significant stenosis. No aneurysm. Right vertebral artery: Unremarkable as visualized. Left internal carotid artery: No acute findings. Intracranial segment is patent with no significant stenosis. No aneurysm. Left anterior cerebral artery: Unremarkable. No occlusion or significant stenosis. No aneurysm. Left middle cerebral artery: Unremarkable. No occlusion or significant stenosis. No aneurysm. Left posterior cerebral artery: Unremarkable. No occlusion or significant stenosis. No aneurysm. Left vertebral artery: Unremarkable as visualized. Basilar artery: Unremarkable. No occlusion or significant stenosis. No aneurysm. IMPRESSION: No acute findings in the arteries of the head/brain. Electronically signed by: Nasreen Dean MD 02/15/23 02:28 AM
--- NOTE | 2023-02-15 02:30 | CT Scan Report ---
Exam(s): CT HEAD Without Contrast EXAM: CT Head Without Intravenous Contrast CLINICAL HISTORY: Neuro deficit, acute, stroke suspected. TECHNIQUE: Axial computed tomography images of the head/brain without intravenous contrast. CTDI is 47.37 mGy and DLP is 799.24 mGy-cm. Automated exposure control was utilized for the study. A dose lowering technique was utilized adhering to the principles of ALARA. COMPARISON: No relevant prior studies available. FINDINGS: Brain: No intracranial hemorrhage, mass-effect or midline shift. No abnormal extra axial fluid. No evidence of acute infarct. Mild periventricular white matter hypodensities are most consistent with chronic microangiopathy. Ventricles: Unremarkable. No ventriculomegaly. Bones/joints: Unremarkable. No acute fracture. Soft tissues: Unremarkable. Sinuses: Unremarkable as visualized. No acute sinusitis. Mastoid air cells: Unremarkable as visualized. No mastoid effusion. IMPRESSION: No acute intracranial finding. Electronically signed by: Nasreen Dean MD 02/15/23 02:29 AM
--- NOTE | 2023-02-15 02:32 | CT Scan Report ---
Exam(s): CTA NECK With Contrast IV Amt: 115 ml optiray 320 EXAM: CT Angiography Neck With Intravenous Contrast CLINICAL HISTORY: Dizziness. TECHNIQUE: Routine carotid CT angiography protocol was performed with intravenous contrast. NASCET criteria using the distal ICAs for comparison were used for evaluation of stenoses. CTDI is 60 mGy and DLP is 620.68 mGy-cm. Automated exposure control was utilized for the study. A dose lowering technique was utilized adhering to the principles of ALARA. MIP reconstructed images were created and reviewed. CONTRAST: Patient received 115 ml optiray 320 of IV contrast COMPARISON: None. FINDINGS: VASCULATURE: Right common carotid artery: Unremarkable. No occlusion or significant stenosis. No dissection. Right internal carotid artery: Unremarkable. Extracranial segment is patent with no occlusion or significant stenosis. No dissection. Right external carotid artery: Unremarkable. No occlusion. Right vertebral artery: Unremarkable. No occlusion or significant stenosis. No dissection. Left common carotid artery: Unremarkable. No occlusion or significant stenosis. No dissection. Left internal carotid artery: Unremarkable. Extracranial segment is patent with no occlusion or significant stenosis. No dissection. Left external carotid artery: Unremarkable. No occlusion. Left vertebral artery: Unremarkable. No occlusion or significant stenosis. No dissection. NECK: Bones/joints: There are degenerative changes spine. Anterior screws and plates traverse C5-C7. No acute fracture. Soft tissues: Unremarkable. Lung apices: Airspace opacity of the lung apices could represent atelectasis and/or pulmonary edema. CAROTID STENOSIS REFERENCE USING NASCET CRITERIA: % ICA stenosis = (1 - narrowest ICA diameter/diameter of distal cervical ICA) x 100. Mild - <50% stenosis. Moderate - 50-69% stenosis. Severe - 70-94% stenosis. Near occlusion - 95-99% stenosis. Occluded - 100% stenosis. IMPRESSION: 1. No acute finding of the arteries of the neck. 2. Airspace opacity of the lung apices could represent atelectasis and/or pulmonary edema. Electronically signed by: Nasreen Dean MD 02/15/23 02:31 AM
--- NOTE | 2023-02-15 04:25 | History & Physical Report ---
Date of Service February 15, 2023 Assessment & Plan (1) Ambulatory dysfunction: (2) Vertigo: (3) BPH (benign prostatic hyperplasia): (4) Depression: (5) Diabetes: (6) Hypertension: Plan Ambulatory dysfunction/intractable vertigo- CT head without contrast normal CTA head and neck normal Moderate serous effusion right ear Unable to order MRI brain as patient is severely claustrophobic, and reports will require sedation Trial of Toradol 30 mg IV x 1 now and then every 6 hours as needed If no improvement Toradol will do a trial of dexamethasone, trying to avoid this due to initial blood sugar 224, which would make it moderately worse Admit to medical telemetry to monitor for possible associated arrhythmia Avoiding IV fluids Diabetes mellitus- Hold metformin and Trulicity Continue empagliflozin Placed on Accu-Cheks with NovoLog SSI Check hemoglobin A1c Hypertension- Continue lisinopril/HCTZ Could consider increasing HCTZ History of Present Illness Chief Complaint: The patient presents to the emergency department with 4 days of progressively worsening dizziness and inability to walk or even stand upright without fear of falling Primary Care Provider: NO PCP The patient is a 67-year-old male with a past medical history including depression, and anxiety, depression, hypertension, hyperlipidemia, morbid obesity, and BPH with LUTS. He reports that about 4 days ago he developed initial stages of dizziness, and said progressive worsening over the past 4 days to the point that he can only lay still in bed, and if he stands or tries to walk he feels like he is going to fall over and injure himself. His does note that he had a sore throat and runny nose for a few days for the symptoms began. He denies any headache, hearing loss, vision loss, focal weakness in arms or legs. He has been taking his medications as directed. His only medication change was Trulicity was increased about 3 months ago, and his blood sugars have stayed about the same during the interval. He denies any recent travels or sick exposures. Allergies Allergy/AdvReac Type Severity Reaction Status Date / Time No Known Allergies Allergy Unknown Verified 02/15/23 01:28 Home Medications Medication Instructions Recorded Confirmed Type atorvastatin 40 mg tablet 40 mg PO HS 03/11/19 02/15/23 History metformin 1,000 mg tablet 1,000 mg PO QAM 03/11/19 02/15/23 History bupropion HCl 150 mg 24 hr tablet, 150 mg PO QAM 02/15/23 02/15/23 History extended release dulaglutide 4.5 mg/0.5 mL 4.5 mg subcut WK 02/15/23 02/15/23 History subcutaneous pen injector (Trulicity) empagliflozin 25 mg tablet 25 mg PO QAM 02/15/23 02/15/23 History (Jardiance) finasteride 5 mg tablet 5 mg PO HS 02/15/23 02/15/23 History fluoxetine 40 mg capsule 40 mg PO QAM 02/15/23 02/15/23 History lisinopril 10 1 tab PO QAM 02/15/23 02/15/23 History mg-hydrochlorothiazide 12.5 mg tablet tamsulosin 0.4 mg capsule 0.4 mg PO HS 02/15/23 02/15/23 History Past Med/Surg History Medical History Right knee DJD BPH (benign prostatic hyperplasia) Depression Diabetes Hypertension Surgical History H/O shoulder surgery Right and Left Shoulder Surgery Previous back surgery History of appendectomy H/O umbilical hernia repair Social History Smoking Status: Former smoker Preferred Language: Belgian marital status: Current Living Situation: Family current occupational status: employed Feels Safe at Home: Yes Review of Systems Review of Systems: The patient denies chest pain, palpitations, shortness of breath, dyspnea on exertion, cough, lower extremity swelling, fevers, chills, sweats, nausea, vomiting, diarrhea , constipation, abdominal pain, pelvic pain, blood in urine or stool, dysuria, urinary frequency or urgency, memory loss, loss of consciousness, rash, abnormal bruising or bleeding, focal or generalized weakness, numbness or tingling in arms or legs, generalized arthralgias or myalgias, back or neck pain, or night sweats. The review of systems is otherwise negative other than for that already noted above, and at least 10 systems have been reviewed. Physical Exam Physical Exam: The patient is awake, alert and oriented 3, well developed and well nourished, normocephalic and atraumatic, lying in bed and in no acute distress. HEENT--PERRL, EOMI, mucous membranes, oropharynx normal. Moderate serous effusion right ear Neck--supple. No JVD. No bruits. Thyroid normal, trachea midline, no adenopathy. Heart--normal S1 and S2. No murmurs, rubs or gallops. Lungs--clear bilaterally, no respiratory distress, no accessory muscle use. Abdomen--normal bowel sounds and soft. Nontender. Nondistended. Morbidly obese Extremities--no cyanosis or clubbing. No edema. Dermatologic--normal skin turgor, normal color, no abnormal lymph nodes, no rash. Neurologic--cranial nerves II through XII grossly intact. Rheumatologic--normal range of motion. Psychiatric--normal affect. Results & Data Results & Data Vital Signs (Past 12 Hours) Vital Signs Temp Pulse Pulse Resp BP BP Pulse Ox 02/15/23 03:00 79 16 151/92 H 96 02/15/23 00:32 65 02/14/23 23:43 65 16 93 02/14/23 23:43 93 02/14/23 23:39 36.7 C 68 20 188/97 H 97 02/14/23 23:35 65 16 146/87 H 93 O2 Del Method O2 Flow Rate 02/15/23 03:00 Room Air 02/15/23 00:32 02/14/23 23:43 Room Air 0 02/14/23 23:43 Room Air 0 02/14/23 23:39 Room Air 02/14/23 23:35 Room Air Laboratory Results Laboratory Results WBC 11.82 K/ul (4.8-10.8) H 02/14/23 23:56 RBC 5.31 M/uL (4.70-6.10) 02/14/23 23:56 Hgb 15.6 g/dl (14.0-18.0) 02/14/23 23:56 Hct 48.0 % (42.0-52.0) 02/14/23 23:56 MCV 90.4 fL (80.0-100.0) 02/14/23 23:56 MCH 29.4 pg (25.0-34.0) 02/14/23 23:56 MCHC 32.5 g/dL (32.0-36.0) 02/14/23 23:56 RDW Std Deviation 44.0 fL (36.4-46.3) 02/14/23 23:56 RDW Coeff of Le[place] 13.3 % (11.5-14.5) 02/14/23 23:56 Plt Count 301 K/uL (130-400) 02/14/23 23:56 MPV 9.5 fL (9.4-12.4) 02/14/23 23:56 PT 10.3 Seconds (9.0-12.0) 02/14/23 23:56 INR 0.9 (0.9-1.1) 02/14/23 23:56 APTT 26 Seconds (21-31) 02/14/23 23:56 PTT Ratio 0.9 02/14/23 23:56 Sodium 136 mmol/L (136-145) 02/14/23 23:56 Potassium 4.6 mmol/L (3.5-5.1) 02/14/23 23:56 Chloride 103 mmol/L (98-107) 02/14/23 23:56 Carbon Dioxide 24 mmol/L (21-32) 02/14/23 23:56 Anion Gap 9 (3-11) 02/14/23 23:56 BUN 15 mg/dl (6-23) 02/14/23 23:56 Creatinine 0.85 mg/dl (0.6-1.4) 02/14/23 23:56 Est Cr Clr Drug Dosing 109.7 ml/min 02/14/23 23:56 Est GFR ( Amer) 103.8 ml/min 02/14/23 23:56 Est GFR (Non-Af Amer) 89.5 ml/min 02/14/23 23:56 BUN/Creatinine Ratio 17.6 (10-20) 02/14/23 23:56 Glucose 224 mg/dl (70-99(Fasting)) H 02/14/23 23:56 Calcium 9.7 mg/dl (8.6-10.3) 02/14/23 23:56 Magnesium 2.1 mg/dl (1.7-2.4) 02/14/23 23:56 Total Bilirubin 0.4 mg/dl (0.2-1.0) 02/14/23 23:56 AST 21 U/L (13-39) 02/14/23 23:56 ALT 38 U/L (7-52) 02/14/23 23:56 Alkaline Phosphatase 72 U/L (34-104) 02/14/23 23:56 Total Protein 7.3 gm/dl (6.0-8.3) 02/14/23 23:56 Albumin 4.2 gm/dl (3.4-5.0) 02/14/23 23:56 Globulin 3.1 gm/dl (2.5-4.0) 02/14/23 23:56 Albumin/Globulin Ratio 1.4 (0.9-2) 02/14/23 23:56 TSH 2.076 uIu/ml (0.300-4.500) 02/14/23 23:56 Urine Color Yellow 02/15/23 Unknown Urine Appearance Clear (Clear) 02/15/23 Unknown Urine pH 6.5 (4.5-7.5) 02/15/23 Unknown Ur Specific [place] 1.043 (1.000-1.030) H 02/15/23 Unknown Urine Protein Negative (Negative) 02/15/23 Unknown Urine Glucose (UA) 3+ (Negative) H 02/15/23 Unknown Urine Ketones Trace (Negative) H 02/15/23 Unknown Urine Blood Negative (Negative) 02/15/23 Unknown Urine Nitrite Negative (Negative) 02/15/23 Unknown Urine Bilirubin Negative (Negative) 02/15/23 Unknown Urine Urobilinogen Negative (Negative) 02/15/23 Unknown Ur Leukocyte Esterase Negative (Negative) 02/15/23 Unknown SARS-CoV-2 (PCR) NEGATIVE (Negative) 02/15/23 00:00 Influenza Type A (PCR) Negative (Neg) 02/15/23 00:00 Influenza Type B (PCR) Negative (Neg) 02/15/23 00:00 RSV (RT-PCR) Negative (Neg) 02/15/23 00:[address] 02/14/23 23:43 Exam(s): CT HEAD Without Contrast EXAM: CT Head Without Intravenous Contrast CLINICAL HISTORY: Neuro deficit, acute, stroke suspected. TECHNIQUE: Axial computed tomography images of the head/brain without intravenous contrast. CTDI is 47.37 mGy and DLP is 799.24 mGy-cm. Automated exposure control was utilized for the study. A dose lowering technique was utilized adhering to the principles of ALARA. COMPARISON: No relevant prior studies available. FINDINGS: Brain: No intracranial hemorrhage, mass-effect or midline shift. No abnormal extra axial fluid. No evidence of acute infarct. Mild periventricular white matter hypodensities are most consistent with chronic microangiopathy. Ventricles: Unremarkable. No ventriculomegaly. Bones/joints: Unremarkable. No acute fracture. Soft tissues: Unremarkable. Sinuses: Unremarkable as visualized. No acute sinusitis. Mastoid air cells: Unremarkable as visualized. No mastoid effusion. IMPRESSION: No acute intracranial finding. Electronically signed by: Nasreen Dean MD 02/15/23 02:29 AM Head CTA 02/15/23 00:36 Exam(s): CTA HEAD With Contrast IV Amt: 115 ml optiray 320 EXAM: CT Angiography Head With Intravenous Contrast CLINICAL HISTORY: Dizziness. TECHNIQUE: Axial computed tomographic angiography images of the head with intravenous contrast. CTDI is 60 mGy and DLP is 620.68 mGy-cm. Automated exposure control was utilized for the study. A dose lowering technique was utilized adhering to the principles of ALARA. MIP reconstructed images were created and reviewed. CONTRAST: Patient received 115 ml optiray 320 of IV contrast COMPARISON: No relevant prior studies available. FINDINGS: Right internal carotid artery: No acute findings. Intracranial segment is patent with no significant stenosis. No aneurysm. Right anterior cerebral artery: Unremarkable. No occlusion or significant stenosis. No aneurysm. Right middle cerebral artery: Unremarkable. No occlusion or significant stenosis. No aneurysm. Right posterior cerebral artery: Unremarkable. No occlusion or significant stenosis. No aneurysm. Right vertebral artery: Unremarkable as visualized. Left internal carotid artery: No acute findings. Intracranial segment is patent with no significant stenosis. No aneurysm. Left anterior cerebral artery: Unremarkable. No occlusion or significant stenosis. No aneurysm. Left middle cerebral artery: Unremarkable. No occlusion or significant stenosis. No aneurysm. Left posterior cerebral artery: Unremarkable. No occlusion or significant stenosis. No aneurysm. Left vertebral artery: Unremarkable as visualized. Basilar artery: Unremarkable. No occlusion or significant stenosis. No aneurysm. IMPRESSION: No acute findings in the arteries of the head/brain. Electronically signed by: Nasreen Dean MD 02/15/23 02:28 AM Neck CTA 02/15/23 00:36 Exam(s): CTA NECK With Contrast IV Amt: 115 ml optiray 320 EXAM: CT Angiography Neck With Intravenous Contrast CLINICAL HISTORY: Dizziness. TECHNIQUE: Routine carotid CT angiography protocol was performed with intravenous contrast. NASCET criteria using the distal ICAs for comparison were used for evaluation of stenoses. CTDI is 60 mGy and DLP is 620.68 mGy-cm. Automated exposure control was utilized for the study. A dose lowering technique was utilized adhering to the principles of ALARA. MIP reconstructed images were created and reviewed. CONTRAST: Patient received 115 ml optiray 320 of IV contrast COMPARISON: None. FINDINGS: VASCULATURE: Right common carotid artery: Unremarkable. No occlusion or significant stenosis. No dissection. Right internal carotid artery: Unremarkable. Extracranial segment is patent with no occlusion or significant stenosis. No dissection. Right external carotid artery: Unremarkable. No occlusion. Right vertebral artery: Unremarkable. No occlusion or significant stenosis. No dissection. Left common carotid artery: Unremarkable. No occlusion or significant stenosis. No dissection. Left internal carotid artery: Unremarkable. Extracranial segment is patent with no occlusion or significant stenosis. No dissection. Left external carotid artery: Unremarkable. No occlusion. Left vertebral artery: Unremarkable. No occlusion or significant stenosis. No dissection. NECK: Bones/joints: There are degenerative changes spine. Anterior screws and plates traverse C5-C7. No acute fracture. Soft tissues: Unremarkable. Lung apices: Airspace opacity of the lung apices could represent atelectasis and/or pulmonary edema. CAROTID STENOSIS REFERENCE USING NASCET CRITERIA: % ICA stenosis = (1 - narrowest ICA diameter/diameter of distal cervical ICA) x 100. Mild - <50% stenosis. Moderate - 50-69% stenosis. Severe - 70-94% stenosis. Near occlusion - 95-99% stenosis. Occluded - 100% stenosis. IMPRESSION: 1. No acute finding of the arteries of the neck. 2. Airspace opacity of the lung apices could represent atelectasis and/or pulmonary edema. Electronically signed by: Nasreen Dean MD 02/15/23 02:31 AM Code Status & VTE Plan Code Status Full code VTE Prophylaxis Plan VTE Prophylaxis will be ordered: Yes PG Care Time/CCT Total # of Minutes Spent Total Time Spent with Patient: Total time spent is greater than 50% in coordination of care (as documented) at patient's floor/unit and/or counseling patient: Coding Level of Care Code 15102 INT INP/OBS CARE 2/55MIN Diagnoses Ambulatory dysfunction R26.2 Vertigo R42 BPH (benign prostatic hyperplasia) N40.0 Depression F32.9 Diabetes E11.9 Hypertension I10
[2023-02-15] MEDS ORDERED: KETOROLAC TROMETHAMINE 15 MG/ML VIAL IV ONE (04:30)
[2023-02-15] MEDS ORDERED: MECLIZINE HCL 25 MG TAB PO PRN (04:58)
[2023-02-15] MEDS ORDERED: GLUCOSE 40% GEL 15 GM TUBE PO PRN (04:58)
[2023-02-15] MEDS ORDERED: GLUCOSE 10 TAB/TUBE PO PRN (04:58)
[2023-02-15] MEDS ORDERED: CARBOHYDRATES FOR HYPOGLYCEMIA PO PRN (04:58)
[2023-02-15] MEDS ORDERED: ONDANSETRON INJ 2 MG/ML 2 ML VIAL IV PRN (04:58)
[2023-02-15] MEDS ORDERED: ACETAMINOPHEN 325 MG TAB PO PRN (04:58)
[2023-02-15] MEDS ORDERED: GLUCAGON FOR INJ 1 MG VIAL SQ PRN (04:58)
[2023-02-15] MEDS ORDERED: DEXTROSE 50% 50 ML SYRINGE IV PRN (04:58)
[2023-02-15] MEDS ORDERED: KETOROLAC TROMETHAMINE 15 MG/ML VIAL IV PRN (05:20)
--- NOTE | 2023-02-15 06:13 | Emergency Department Note ---
ED Visit Note I agree with the diagnosis and management decisions and have been personally involved in the case. Imaging studies and laboratory work were reviewed. Patient was unable to tolerate his ambulatory trial after treatment for vertigo. His case was discussed with the hospitalist service for further management. Please see Amelie Zambrano PA-C's notes for further details of the history, physical and visit. .
--- NOTE | 2023-02-15 07:05 | XRay Report ---
SUPINE AP CHEST RADIOGRAPH CLINICAL HISTORY: stroke alert COMPARISON STUDY: Chest radiograph November 20, 2021. FINDINGS: Postoperative finding within the spine are incidentally noted. Lung volumes are normal. Delmi gs are clear. There is no pneumothorax or pleural effusion. Cardiac silhouette is moderately enlarged accentuated by AP technique. Mediastinal contours are normal. There is no evidence for pulmonary lucille ma. IMPRESSION: No acute cardiopulmonary findings. ACT 112: Negative or not required by law. Electronically signed by: Wali Pelletier M.D. 02/15/2023 7:04 AM
[2023-02-15] MEDS ORDERED: FLUoxetine HCL 20 MG CAP PO SCH (09:00)
[2023-02-15] MEDS ORDERED: buPROPion XL 150 MG TABCR PO SCH (09:00)
[2023-02-15] MEDS ORDERED: LISINOPRIL/HCTZ 10/12.5MG TAB PO SCH (09:00)
[2023-02-15] MEDS: INSULIN ASPART PER UNIT CHARGE SC SCH ×3 (09:51→18:00)
--- NOTE | 2023-02-15 12:43 | Electrocardiogram Report ---
Test Reason : Blood Pressure : / mmHG Vent. Rate : 063 BPM Atrial Rate : 063 BPM P-R Int : 194 ms QRS Dur : 086 ms QT Int : 398 ms P-R-T Axes : 054 024 047 degrees QTc Int : 407 ms Normal sinus rhythm Normal ECG When compared with ECG of 05-SEP-2019 08:18, No significant change was found Confirmed by Arthur Goodrich ([id number]) on 02/15/2023 12:43:02 PM Referred By: REFERRED SELF Confirmed By:Arthur Goodrich
[2023-02-15] MEDS ORDERED: predniSONE 20 MG TAB PO STA (18:16)
--- NOTE | 2023-02-15 18:29 | Discharge Summary ---
Discharge Summary Date of Service February 15, 2023 Admission HPI Per Admitting Provider The patient is a 67-year-old male with a past medical history including depression, and anxiety, depression, hypertension, hyperlipidemia, morbid obesity, and BPH with LUTS. He reports that about 4 days ago he developed initial stages of dizziness, and said progressive worsening over the past 4 days to the point that he can only lay still in bed, and if he stands or tries to walk he feels like he is going to fall over and injure himself. His does note that he had a sore throat and runny nose for a few days for the symptoms began. He denies any headache, hearing loss, vision loss, focal weakness in arms or legs. He has been taking his medications as directed. His only medication change was Trulicity was increased about 3 months ago, and his blood sugars have stayed about the same during the interval. He denies any recent travels or sick exposures. Principal Dx & Hospital Course #1 = Principal Diagnosis (1) Vertigo: (2) Ambulatory dysfunction: (3) BPH (benign prostatic hyperplasia): (4) Depression: (5) Diabetes: (6) Hypertension: Plan Ambulatory dysfunction/intractable vertigo- CT head without contrast normal CTA head and neck normal Moderate serous effusion right ear Unable to order MRI brain as patient is severely claustrophobic, and reports will require sedation Trial of Toradol 30 mg IV x 1 now and then every 6 hours as needed If no improvement Toradol will do a trial of dexamethasone, trying to avoid this due to initial blood sugar 224, which would make it moderately worse Admit to medical telemetry to monitor for possible associated arrhythmia Avoiding IV fluids Diabetes mellitus- Hold metformin and Trulicity Continue empagliflozin Placed on Accu-Cheks with NovoLog SSI Check hemoglobin A1c Hypertension- Continue lisinopril/HCTZ Could consider increasing HCTZ Updated Medication List Medication Instructions Recorded Confirmed Type atorvastatin 40 mg tablet 40 mg PO HS 03/11/19 02/15/23 History metformin 1,000 mg tablet 1,000 mg PO QAM 03/11/19 02/15/23 History bupropion HCl 150 mg 24 hr tablet, 150 mg PO QAM 02/15/23 02/15/23 History extended release dulaglutide 4.5 mg/0.5 mL 4.5 mg subcut WK 02/15/23 02/15/23 History subcutaneous pen injector (Trulicity) empagliflozin 25 mg tablet 25 mg PO QAM 02/15/23 02/15/23 History (Jardiance) finasteride 5 mg tablet 5 mg PO HS 02/15/23 02/15/23 History fluoxetine 40 mg capsule 40 mg PO QAM 02/15/23 02/15/23 History lisinopril 10 1 tab PO QAM 02/15/23 02/15/23 History mg-hydrochlorothiazide 12.5 mg tablet meclizine 25 mg tablet 25 mg PO Q8H PRN dizziness #30 tabs 02/15/23 Rx prednisone 20 mg tablet 40 mg (2 x 20 mg) PO DAILY 4 days 02/15/23 Rx #8 tabs tamsulosin 0.4 mg capsule 0.4 mg PO HS 02/15/23 02/15/23 History Hospital Stay Data Consultations 02/15/23 03:56 ED Decision to Admit Stat Diagnostic Imagining Performed 02/14/23 23:43 CT head/brain wo con Stat 02/15/23 00:36 CTA head w con [CT angio head w con] Stat CTA neck with con [CT angio neck with con] Stat Pending Results Patient Have Any Pending Studies at Discharge: No Discharge Instructions Given to Patient (Per Discharging Provider) You were admitted for dizziness which is now improved. You had normal blood work and tested negative for COVID,Flu, and RSV. You had CT angiograms of the blood vessels in your head and neck and this ruled out any blockages in the vessels or aneurysms. There was no stroke seen on your head CT. Because you had a recent cold virus, it is possible that you developed inflammation of a nerve in your inner ear that can cause vertigo. Please take the prednisone 40mg daily for 4 more days to reduce inflammation and improve your vertigo. You can take the meclizine every 8 hours as needed. While on the prednisone, you may notice your blood sugar increasing. If it goes higher than 300, please let your doctor know. If your dizziness, nausea, or headache worsen rather than continue to get better, please return to the hospital. You did have some findings seen in the tops of your lungs on the CT of your neck which were consistent with some minor inflammation in the lungs and some fluid behind your eardrums. This could be from your recent viral illness. Please follow up with your PCP for this. Coding Diagnoses Vertigo R42 Ambulatory dysfunction R26.2 BPH (benign prostatic hyperplasia) N40.0 Depression F32.9 Diabetes E11.9 Hypertension I10
[2023-02-15] MEDS ORDERED: FINASTERIDE 5 MG TAB PO SCH (21:00)
[2023-02-15] MEDS ORDERED: TAMSULOSIN HCL 0.4 MG CAP PO SCH (21:00)
[2023-02-15] MEDS ORDERED: ATORVASTATIN 40 MG TAB PO SCH (21:00)
== END 2023-02-15 19:00 | disposition home or self-care (01) ==
LOC: EDINP 23:34 → ED 23:34 → SUATTDRO 02-15 04:24 → EDINP 02-15 04:59